=== PATIENT | male | born 1950 | race Caucasian/White ===

== ENCOUNTER 2017-07-20 18:28 | Inpatient (IN) | payer OTHER ==
[2017-07-20] VITALS (9 sets, daily range): BP systolic 149–221; BP diastolic 83–145; PULSE 88–137; RESP 16–22; TEMP 98.4–98.6; O2SAT 96–100
[~2017-07-20] VITALS: Ht 177.8 cm; Wt 86.0 kg
[2017-07-20] MEDS ORDERED: NITROGLYCERIN 0.4 MG SL 25 TABS/BTL SL ONE (18:33)
[2017-07-20] MEDS ORDERED: MORPHINE SULFATE 8 MG/ML INJ ONE (18:37)
[2017-07-20] MEDS ORDERED: ASPIRIN 325 MG TAB ONE (18:37)
[2017-07-20] MEDS ORDERED: MORPHINE SULFATE 4 MG/ML INJ IV PUSH ONE (18:45)
[2017-07-20] MEDS ORDERED: SODIUM CHLOR 0.9% 1000 ML INJ 1,000 ML IV ONE (18:45)
[2017-07-20] MEDS ORDERED: SODIUM CHLORIDE 0.9% FLUSH 10 ML FLUSH IVF PRN (18:45)
[2017-07-20] MEDS ORDERED: NITROGLYCERIN-D5W 50 MG/250 ML 250 ML IV PRN ×2 (18:45→21:30)
[2017-07-20] MEDS ORDERED: ASPIRIN 325 MG TAB PO ONE (18:45)
--- NOTE | 2017-07-20 18:54 | PD ---
HPI Chief Complaint: Chest Pain Time Seen by Provider: 18:31 Travel History International Travel<30 days: No Contact w/Intl Traveler<30days: No Traveled to known affect area: No History of Present Illness HPI 66yo M with PMH of HTN presents to the ED with c/o midsternal chest pain since waking up this morning. States it was very severe before and has gotten better to about a 4 out of 10. Associated with sob. Denies any fever, n/v, abdominal pain, focal weakness or weakness. Pt said he had black stool 2 days ago but is refusing rectal. PFSH Social History Alcohol Use: No Tobacco Use: Yes Substance Use: No Allergies-Medications (Allergen,Severity, Reaction): Coded Allergies: codeine (Verified Allergy, Severe, 07/20/17) Review of Systems Except as stated in HPI: all other systems reviewed are Neg Physical Exam Narrative GENERAL: 66yo M in moderate distress. SKIN: Focused skin assessment warm/dry. HEAD: Atraumatic. Normocephalic. EYES: Pupils equal and round. No scleral icterus. No injection or drainage. ENT: No nasal bleeding or discharge. Mucous membranes pink and moist. NECK: Trachea midline. No JVD. CARDIOVASCULAR: Regular rate and rhythm. No murmur appreciated. RESPIRATORY: No accessory muscle use. Clear to auscultation. Breath sounds equal bilaterally. GASTROINTESTINAL: Abdomen soft, non-tender, nondistended. RECAL: Refusing rectal. MUSCULOSKELETAL: No obvious deformities. No clubbing. No cyanosis. No edema. NEUROLOGICAL: Awake and alert. No obvious cranial nerve deficits. Motor grossly within normal limits. Normal speech. PSYCHIATRIC: Appropriate mood and affect; insight and judgment normal. Data Data Last Documented VS Vital Signs Date Time Temp Pulse Resp B/P (MAP) Pulse Ox O2 Delivery O2 Flow Rate FiO2 07/20/17 19:25 100 3.00 07/20/17 19:25 Nasal Cannula 07/20/17 18:55 118 209/139 (162) 221/145 (170) 07/20/17 18:52 16 07/20/17 18:29 98.6 Orders Orders Nitroglycerin Sl (Nitrostat Sl) (07/20/17 18:33) Aspirin (Aspirin) (07/20/17 18:37) Morphine Inj (Morphine Inj) (07/20/17 18:37) Nitroglycerin-D5w 50 Mg/250 Ml (Nitrogly (07/20/17 18:45) Basic Metabolic Panel (Bmp) (07/20/17 18:40) Ckmb (Isoenzyme) Profile (07/20/17 18:40) Complete Blood Count With Diff (07/20/17 18:40) Magnesium (Mg) (07/20/17 18:40) Prothrombin Time / Inr (Pt) (07/20/17 18:40) Act Partial Throm Time (Ptt) (07/20/17 18:40) Troponin I (07/20/17 18:40) Chest, Single Ap (07/20/17 18:40) Ecg Monitoring (07/20/17 18:40) Bilateral Bp Monitoring (07/20/17 18:40) Iv Access Insert/Monitor (07/20/17 18:40) Oximetry (07/20/17 18:40) Oxygen Administration (07/20/17 18:40) Aspirin (Aspirin) (07/20/17 18:45) Morphine Inj (Morphine Inj) (07/20/17 18:45) Sodium Chloride 0.9% Flush (Ns Flush) (07/20/17 18:45) Sodium Chlor 0.9% 1000 Ml Inj (Ns 1000 M (07/20/17 18:45) Blood Culture (07/20/17 18:43) Lactic Acid Sepsis Protocol (07/20/17 18:43) Admit Order (Ed Use Only) (07/20/17 19:28) CKMB (07/20/17 18:50) CKMB% (07/20/17 18:50) Labs Laboratory Tests Test 07/20/17 18:50 White Blood Count 12.6 TH/MM3 Red Blood Count 5.47 MIL/MM3 Hemoglobin 15.6 GM/DL Hematocrit 46.6 % Mean Corpuscular Volume 85.3 FL Mean Corpuscular Hemoglobin 28.6 PG Mean Corpuscular Hemoglobin Concent 33.5 % Red Cell Distribution Width 14.1 % Platelet Count 289 TH/MM3 Mean Platelet Volume 8.4 FL Neutrophils (%) (Auto) 74.7 % Lymphocytes (%) (Auto) 20.4 % Monocytes (%) (Auto) 4.2 % Eosinophils (%) (Auto) 0.3 % Basophils (%) (Auto) 0.4 % Neutrophils # (Auto) 9.4 TH/MM3 Lymphocytes # (Auto) 2.6 TH/MM3 Monocytes # (Auto) 0.5 TH/MM3 Eosinophils # (Auto) 0.0 TH/MM3 Basophils # (Auto) 0.0 TH/MM3 CBC Comment DIFF FINAL Differential Comment Prothrombin Time 10.8 SEC Prothromb Time International Ratio 1.0 RATIO Activated Partial Thromboplast Time 27.5 SEC Blood Urea Nitrogen 15 MG/DL Creatinine 1.33 MG/DL Random Glucose 103 MG/DL Calcium Level 9.3 MG/DL Magnesium Level 2.2 MG/DL Sodium Level 136 MEQ/L Potassium Level 4.2 MEQ/L Chloride Level 103 MEQ/L Carbon Dioxide Level 26.8 MEQ/L Anion Gap 6 MEQ/L Estimat Glomerular Filtration Rate 54 ML/MIN Lactic Acid Level 1.4 mmol/L Total Creatine Kinase 451 U/L Creatine Kinase MB 36.2 NG/ML Creatine Kinase MB % 8.0 % Troponin I 3.83 NG/ML MDM Medical Decision Making Medical Screen Exam Complete: Yes Emergency Medical Condition: Yes Interpretation(s) EKG: Sinus tachycardia at 125bpm. ST segment elevation in V2, V3. ST depression II, III, aVF. Differential Diagnosis STEMI vs. GI bleed vs. sepsis Narrative Course 66yo M with STEMI. I called Dr. Mohan who is project control officer for STEMI and he recommended lowering his blood pressure to less than 140 systolic with nitroglycerin drip and to call him back. Pt given morphine 2mg, aspirin and is on nitroglycerin drip. BP is down to 172/96 and pt states he is now pain free. Discussed pt's labs with Dr. Mohan and hemoglobin is normal at 15.6. At this time, he asked me to call the STEMI which was called. Mild leukocytosis at 12.6. Lactic acid 1.4. Creatinine mildly elevated at 1.33. Troponin elevated at 3.83. CXR showed blunting of left costophrenic angle which could indicate scarring versus small effusion. HR is also decreased to 106bpm. Pt said he had black stool 2 days ago but refused rectal exam. Pt initially refused cardiac cath and refused the nurse to shave his groin but after discussion, agreed to cardiac cath. Pt admitted to Dr. Mohan's service. Critical Care Narrative Aggregate critical care time was 35 minutes. Time to perform other separately billable procedures was not included in the critical care time. My time did not include minutes spent treating any other patients simultaneously or on activities that did not directly contribute to the patient's treatment. The services I provided to this patient were to treat and/or prevent clinically significant deterioration that could result in: cardiovascular collapse or . I provided critical care services requiring my management, as noted below: Chart data review, documentation time, medication orders and management, vital sign assessments/reviewing monitor data, ordering and reviewing lab tests, ordering and interpreting/reviewing x-rays and diagnostic studies, care of the patient and discussion of the patient with the admitting physicians. Diagnosis Primary Impression: STEMI (ST elevation myocardial infarction) Qualified Codes: I21.3 - ST elevation (STEMI) myocardial infarction of unspecified site Admitting Information Admitting Physician Requests: Dea Johnson DO Jul 20, 2017 18:54
[2017-07-20 19:11] LABS: AUTOMATED NEUTROPHIL # 9.4 TH/MM3 (1.8-7.7); BASOPHIL % 0.4 % (0.0-2.0); EOSINOPHIL % 0.3 % (0.0-4.0); HEMATOCRIT 46.6 % (39.0-51.0); HEMO FLAGS DIFF FINAL; LYMPH % 20.4 % (9.0-44.0); LYMPHOCYTE # 2.6 TH/MM3 (1.0-4.8); MEAN CELL VOLUME 85.3 FL (80.0-100.0); MEAN CORPUSCULAR HEMOGLOBIN 28.6 PG (27.0-34.0); MEAN CORPUSCULAR HGB CONC 33.5 % (32.0-36.0); MONO % 4.2 % (0.0-8.0); NEUT % 74.7 % (16.0-70.0); PLATELET COUNT 289 TH/MM3 (150-450); RED BLOOD COUNT 5.47 MIL/MM3 (4.50-5.90); RED CELL DISTRIBUTION WIDTH 14.1 % (11.6-17.2); WHITE BLOOD COUNT 12.6 TH/MM3 (4.0-11.0)
--- NOTE | 2017-07-20 19:12 | RADRPT ---
EXAM DATE/TIME: 07/20/2017 18:57 [facility] COMPARISON: No previous studies available for comparison. INDICATIONS : Chest pain and shortness of breath. MEDICAL HISTORY : None. SURGICAL HISTORY : None. ENCOUNTER: Initial ACUITY: 1 day PAIN SCORE: 10/10 LOCATION: Bilateral chest FINDINGS: 2 AP erect views of the chest were obtained and demonstrate mild hyperinflation. There is blunting of the left lateral costophrenic angle. There is mild streaky opacity at lung bases consistent with ate lectasis or scarring. The heart size is within normal limits and there is no perihilar edema. The bon y thorax is intact. There are overlying electrocardiogram leads.. Osseous structures are intact. CONCLUSION: 1. Blunting of the left costophrenic angle which could indicate scarring versus small effusion. 2. Mild scarring or atelectasis at the lung bases. 3. Mild hyperinflation. Kerwin Roldan MD on July 20, 2017 at 19:09 Board Certified Radiologist. This report was verified electronically.
--- NOTE | 2017-07-20 19:16 | PD ---
Physical Exam Narrative General: The patient is a well-developed well-nourished male in no acute distress, on my arrival to the room the patient reports that his chest pain has improved the patient was initially evaluated by Dr. Gaviria. The patient has been placed on a nitroglycerin drip. Head and Neck exam: Head is normocephalic atraumatic. Eyes: EOMI, pupils are equal round and reactive to light. Nose: Midline septum with pink mucous membranes Mouth: Dentition unremarkable. Moist mucus membranes. Posterior oropharynx is not erythematous. No tonsillar hypertrophy. Uvula midline. Airway patent. Neck: No palpable lymphadenopathy. No nuchal rigidity. No thyromegaly. Cardiovascular: Sinus tachycardia in the 1T without murmurs, gallops, or rubs. No pulse deficit to the extremities on simultaneous auscultation and palpation of his radial artery Lungs: Clear to auscultation bilaterally. No wheezes, rhonchi, or rales. Abdomen: Soft, without tenderness to palpation in all 4 quadrants of the abdomen. No guarding, rebound, or rigidity. Normal bowel sounds are audible. Extremities: No clubbing, cyanosis, or edema. 2+ pulses in all 4 extremities. No calf tenderness on palpation. Neurologic Exam: Alert and oriented 4. Grossly nonfocal. Skin Exam: No rash noted. Intact skin that is warm and dry. Data Data Last Documented VS Vital Signs Date Time Temp Pulse Resp B/P (MAP) Pulse Ox O2 Delivery O2 Flow Rate FiO2 07/20/17 18:55 118 209/139 (162) 221/145 (170) 07/20/17 18:52 16 97 2.00 07/20/17 18:37 Nasal Cannula 07/20/17 18:29 98.6 Orders Orders Nitroglycerin Sl (Nitrostat Sl) (07/20/17 18:33) Aspirin (Aspirin) (07/20/17 18:37) Morphine Inj (Morphine Inj) (07/20/17 18:37) Nitroglycerin-D5w 50 Mg/250 Ml (Nitrogly (07/20/17 18:45) Basic Metabolic Panel (Bmp) (07/20/17 18:40) Ckmb (Isoenzyme) Profile (07/20/17 18:40) Complete Blood Count With Diff (07/20/17 18:40) Magnesium (Mg) (07/20/17 18:40) Prothrombin Time / Inr (Pt) (07/20/17 18:40) Act Partial Throm Time (Ptt) (07/20/17 18:40) Troponin I (07/20/17 18:40) Chest, Single Ap (07/20/17 18:40) Ecg Monitoring (07/20/17 18:40) Bilateral Bp Monitoring (07/20/17 18:40) Iv Access Insert/Monitor (07/20/17 18:40) Oximetry (07/20/17 18:40) Oxygen Administration (07/20/17 18:40) Aspirin (Aspirin) (07/20/17 18:45) Morphine Inj (Morphine Inj) (07/20/17 18:45) Sodium Chloride 0.9% Flush (Ns Flush) (07/20/17 18:45) Sodium Chlor 0.9% 1000 Ml Inj (Ns 1000 M (07/20/17 18:45) Blood Culture (07/20/17 18:43) Lactic Acid Sepsis Protocol (07/20/17 18:43) Admit Order (Ed Use Only) (07/20/17 19:28) CKMB (07/20/17 18:50) CKMB% (07/20/17 18:50) Labs Laboratory Tests Test 07/20/17 18:50 White Blood Count 12.6 TH/MM3 Red Blood Count 5.47 MIL/MM3 Hemoglobin 15.6 GM/DL Hematocrit 46.6 % Mean Corpuscular Volume 85.3 FL Mean Corpuscular Hemoglobin 28.6 PG Mean Corpuscular Hemoglobin Concent 33.5 % Red Cell Distribution Width 14.1 % Platelet Count 289 TH/MM3 Mean Platelet Volume 8.4 FL Neutrophils (%) (Auto) 74.7 % Lymphocytes (%) (Auto) 20.4 % Monocytes (%) (Auto) 4.2 % Eosinophils (%) (Auto) 0.3 % Basophils (%) (Auto) 0.4 % Neutrophils # (Auto) 9.4 TH/MM3 Lymphocytes # (Auto) 2.6 TH/MM3 Monocytes # (Auto) 0.5 TH/MM3 Eosinophils # (Auto) 0.0 TH/MM3 Basophils # (Auto) 0.0 TH/MM3 CBC Comment DIFF FINAL Differential Comment Prothrombin Time 10.8 SEC Prothromb Time International Ratio 1.0 RATIO Activated Partial Thromboplast Time 27.5 SEC Blood Urea Nitrogen 15 MG/DL Creatinine 1.33 MG/DL Random Glucose 103 MG/DL Calcium Level 9.3 MG/DL Magnesium Level 2.2 MG/DL Sodium Level 136 MEQ/L Potassium Level 4.2 MEQ/L Chloride Level 103 MEQ/L Carbon Dioxide Level 26.8 MEQ/L Anion Gap 6 MEQ/L Estimat Glomerular Filtration Rate 54 ML/MIN Lactic Acid Level 1.4 mmol/L Total Creatine Kinase 451 U/L Troponin I 3.83 NG/ML [facility] Medical Record Reviewed: Yes Supervised Visit with DAVID: Yes Interpretation(s) Last Impressions Chest X-Ray 07/20/17 1840 Signed Impressions: Service Date/Time: Thursday, July 20, 2017 18:57 - CONCLUSION: 1. Blunting of the left costophrenic angle which could indicate scarring versus small effusion. 2. Mild scarring or atelectasis at the lung bases. 3. Mild hyperinflation. Kerwin Roldan MD Narrative Course During the course of the patients emergency department visit, the patients history, examination, and differential diagnosis were reviewed with the patient. The patient had IV access obtained and blood work sent for analysis. The patient is a 66-year-old male who presents to [facility] emergency Department with a history of intermittent chest pain that he reports began 2-3 days ago. He reports that it became constant this afternoon when he woke up at 1:30 PM. The patient reports that the pain was a 10 out of 10 in severity. He reports it was associated with intermittent shortness of breath, diaphoresis, and nausea last night. The patient reports that he first started having chest pain a few months ago, however that episode spontaneously resolved and he was not evaluated at the time the chest pain was occurring. He did discuss this [facility], however no further interventions were done. The patient reports that over the last 2-3 days he has also been experiencing black stools. He reports that he last moved his bowels yesterday and they were black. He denies any prior history of peptic ulcer disease or GI bleed, however he reports that he has never had a colonoscopy. The patient refuses to have a rectal examination done. The patient was initially provided a nitroglycerin drip, aspirin by mouth. The patients laboratory studies were reviewed and remarkable for a white count of 12, hemoglobin 15, platelets 289 basic metabolic profile is remarkable for a creatinine 1.33, troponin I is 3.8, lactic acid is 1.4. Radiology studies were reviewed and remarkable for blunting of the costophrenic angle which appears to be related atelectasis versus scarring, no other acute abnormality. The patient's case was initially checked out to me by Dr. Gaviria, however she then again spoke to Dr. Mohan regarding the patient's normal hemoglobin and EKG abnormalities and a STEMI alert was called. Dr. Gaviria admitted the patient and the patient is going to be transferred up to the cardiac catheterization lab for further discussion with Dr. Mohan. Sepsis Criteria SIRS Criteria (2 or more): Heart rate over 90 Diagnosis Primary Impression: STEMI (ST elevation myocardial infarction) Qualified Codes: I21.3 - ST elevation (STEMI) myocardial infarction of unspecified site Admitting Information Admitting Physician Requests: Admit Renetta Xiao MD Jul 20, 2017 19:15
[2017-07-20 19:24] LABS: APTT (PATIENT) 27.5 SEC (24.3-30.1); PROTHROMBIN TIME - PATIENT 10.8 SEC (9.8-11.6)
[2017-07-20 19:30] LABS: BICARBONATE 26.8 MEQ/L (21.0-32.0); MAGNESIUM 2.2 MG/DL (1.5-2.5)
[2017-07-20 19:35] LABS: POTASSIUM 4.2 MEQ/L (3.5-5.1)
[2017-07-20 19:55] LABS: CKMB 36.2 NG/ML (0.5-3.6)
[2017-07-20] MEDS ORDERED: HEPARIN-NS/PF INJ 1,000 ML ONE (19:57)
[2017-07-20] MEDS ORDERED: IOHEXOL 350 MG/ML 100 ML BTL (for Cath Lab) OTHER ONE (20:15)
[2017-07-20] MEDS ORDERED: MIDAZOLAM HCL 2 MG/2 ML VIAL ONE ×3 (20:17→21:05)
[2017-07-20] MEDS ORDERED: HEPARIN SODIUM - IV 10,000 UNITS/10 ML VIAL ONE (20:57)
[2017-07-20] MEDS ORDERED: CLOPIDOGREL 300 MG TAB ONE (21:14)
[2017-07-20] MEDS ORDERED: TIROFIBAN BOLUS INJ 100 ML IV ONE (21:15)
[2017-07-20] MEDS: TIROFIBAN INFUSION INJ 250 ML IV SCH (21:16)
[2017-07-20] MEDS ORDERED: BACITRACIN OINT 0.9 GM PKT TOP ONE (21:30)
[2017-07-20] MEDS ORDERED: MISC INFORMATION XX ONE (21:30)
[2017-07-20] MEDS ORDERED: CLOPIDOGREL 300 MG TAB PO ONE (21:30)
[2017-07-20] MEDS ORDERED: SODIUM CHLORIDE 0.9% FLUSH 10 ML FLUSH PRN (21:30)
--- NOTE | 2017-07-20 21:33 | CATHPROC ---
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 Study Information Study Number Admission Scheduled Start Study Start [id number] Jul 20 2017 7:30PM 07/20/2017 Jul 20 2017 8:03PM [place] [facility] Cardiac Catheterization Admit Source Facility Department Emergency department [facility] - Bone Glue Maker Physician and Clinical Staff Initial Hardeep Morrell [employer] Drilling Machine Operator Jacqueline Urban,COBY Rotary [employer] Drilling Machine Operator Tiffanie Hughes RN Recorder Tony Curiel,RT(R) Scrub Kingsley Ricks RCIS(BS) Procedures Performed Procedure Location (Site) Vessel Name Coronary Angiograms LCA Left Coronary Coronary Angiograms RCA Right Coronary L Heart Cath LV Gram-hand inj. LV LV Ventricle Stent LAD Prox Left Coronary Wire insertion Fem Art (right) Femoral Art Equipment Time Casino Floor Person Description Size Mfg Part Number Used/Scraped [id number] 20:58 [employer] WIRE, ASAHI PROWATER 180CM 180CM Used *[id number] 20:58 [employer] WIRE, ASAHI PROWATER 180CM 180CM Used *[id number] TRANSDUCER, TRUWAVE [id number] 20:10 RUFF SMITH * Used W/STOCKCOCK *[id number] 21:04 [employer] WIRE, CHOICE PT 182CM 182CM Used *[id number] [id number] *[id number] [id number] *[id number] *[id number] 20:10 [employer] INDUSTRIES PACK, CCL CUSTOM * Used *[id number] 20:10 [employer] PACER PEN, SKIN DUAL W/ RULER * Used *[id number] 21:08 [employer] STENT, 3.0 12 INTEGRITY 3.0 12 Used *[id number] 21:07 [employer] STENT, 3.0 9 INTEGRITY 3.0 9 Used *[id number] 20:58 [employer] MEDICAL 30 GABRIELA INDEFLATOR Used *[id number] 21:00 [employer] MEDICAL SHEATH, FR6.5 PRELUDE 11CM FR 6.5 038ACT Used *[id number] 20:10 [employer] MEDICAL WIRE, 3MMJ .035 180CM 180CM Used *[id number] 20:10 NAMIC MANIFOLD, 4 PORT * Used *[id number] 20:10 NYCOMED OMNIPAQUE, 350 MG, 150ML 150ML [id number] Used [id number] 20:10 [employer] BLANKET,WARM AIR CCL * Used *[id number] 20:10 TERUMO MEDICAL SHEATH, FR4 TERUMO (10CM) FR 4 Used *[id number] Equipment Model, Serial, Lot Number and Expiration Data Description Model Number Serial Number Lot Number Expiration Date STENT, 3.0 12 INTEGRITY [id number] 12-31-2018 WIRE, CHOICE PT 182CM [id number] 01-26-2019 History: Current Medications Medication Dosage/Unit Route Frequency Last Date/Time Taken ASA History: Allergies Allergy Reaction codeine History: Risk Factors Family History of Hypertension Dyslipidemia Previous SD Previous Heart Failure Premature CAD Yes No No No No Prior Valve Prior PCI Prior CABG Surgery No No No Cerebrovascular Peripheral Artery Chronic Lung On Dialysis Diabetes Disease Disease Disease No No No No No History: Risk Factors Selection Items Current Smoker History: Symptoms/Diagnosis Selection Items Chest pain SOB History: Stress Tests Stress or Imaging Studies Performed No History: Other Disease Selection Items HTN History: Other Current Smoker Method Packs a Day Years Used Pack Years Yes Cigarettes 2 50 100 Labs Hgb (g/dl) Hct (%) RBC (MIL/MM3) WBC (l/cumm) Platelets (thousands) 11.60-17.00 35.00-51.00 4.00-5.90 4.00-11.00 150.00-450.00 15.0 46.6 5.4 12.6 289 Glucose (mg/dl) BUN (mg/dl) Creatinine (mg/dl) BUN:Creatinine (1:x) 74.00-106.00 7.00-18.00 0.50-1.30 10.00-20.00 103 15 1.3 11.5 Na (meq/l) K (meq/l) Cl (meq/l) CO2 (mmol/L) Ca (mg/dl) 136.00-145.00 3.50-5.10 98.00-107.00 21.00-32.00 8.50-10.10 136 4.2 103 26.8 9.3 PT (sec) PTT (sec) INR (PTT:PT) 9.80-11.60 24.30-30.10 0.90-1.10 10.8 27.5 1 Troponin I (ng/ml) CPK-MB (ng/ML) 0.02-0.05 0.50-3.60 3.83 36.2 Medication Medication Total Dose (Bolus/Oral) Medication Total Dosage/Unit 1% XYLOCAINE 20 mL AGGRASTAT BOLUS 15.5 meq/kg HEPARIN 6000 units PLAVIX 600 mg VERSED 6 mg Medications (Bolus/Oral) Medication Time Given Dosage/Unit Administered By Reason VERSED 07/20/2017 8:29:11 PM 2 mg Mrache, Tiffanie 2 mg VERSED given in lab by Tiffanie Hughes RN in Left Hand via Peripheral IV. VERSED 07/20/2017 8:44:22 PM 1 mg Mrache, Tiffanie 1 mg VERSED given in lab by Tiffanie Hughes RN in Left Hand via Peripheral IV. 1% XYLOCAINE 07/20/2017 8:45:35 PM 20 mL Marques, Hardeep 20 mL 1% XYLOCAINE given in lab by Hardeep Mohan in Right Groin via Subcutaneous. VERSED 07/20/2017 8:45:48 PM 1 mg Mrache, Tiffanie 1 mg VERSED given in lab by Tiffanie Hughes RN in Left Hand via Peripheral IV. VERSED 07/20/2017 8:47:28 PM 1 mg Mrache, Tiffanie 1 mg VERSED given in lab by Tiffanie Hughes RN in Left Hand via Peripheral IV. HEPARIN 07/20/2017 8:59:02 PM 6000 units Edi Hughest 6000 units HEPARIN given in lab by Tiffanie Hughes RN in Left Hand via Peripheral IV. VERSED 07/20/2017 9:06:55 PM 1 mg Mrache, Tiffanie 1 mg VERSED given in lab by Tiffanie Hughes RN in Left Hand via Peripheral IV. AGGRASTAT BOLUS 07/20/2017 9:17:26 PM 15.5 meq/kg Mralashell, Tiffanie 15.5 meq/kg AGGRASTAT BOLUS given in lab by Tiffanie Hughes RN via Peripheral IV. Amount given = 13 33 meq. PLAVIX 07/20/2017 9:17:51 PM 600 mg Mrache, Tiffanie 600 mg PLAVIX given in lab by Tiffanie Hughes RN via Oral. Medication (Drip) Medication Time Given Dosage/Unit Concentration/Unit Diluent (ml) Solution AGGRASTAT DRIP 07/20/2017 9:20:26 PM 0.15 mcg/kg/min 12.5 mg 250 NaCl .9 0.15 mcg/kg/min AGGRASTAT DRIP given in lab by Tiffanie Hughes RN via Peripheral IV. Pump/Drip Flow = 15.48 ml/hr using NaCl .9 with a concentration of 12.5 mg in 250 ml. IV Solutions 07/20/2017 8:19:44 PM 50 mL (Bolus) 500 NaCl .9 Patient arrived on 50 mL (Bolus) IV Solutions in Left Hand via Peripheral IV. Using NaCl .9. NITROGLYCERIN DRIP 07/20/2017 8:19:29 PM 16.667 mcg/min 50 mg 250 D5W Patient arrived on 16.667 mcg/min NITROGLYCERIN DRIP in Left Hand via Peripheral IV. Pump/Drip Flow = 5 ml/hr using D5W with a concentration of 50 mg in 250 ml. Initial Case Assessment Cardiovascular Rhythm Chest Pain Irregular 4 Edema Present Skin color Skin None Normal Warm Dry Circulatory - Right Pulses Dorsalis Pedis Femoral 2 2 Scale (0,1,2,3,4,d) Circulatory - Left Pulses Dorsalis Pedis Femoral 0 1 Scale (0,1,2,3,4,d) Neurological State Oriented to time-place- Alert Moves all extremities person Respiration - General SpO2 (%) O2 (lpm) 100 3 Final Case Assessment Cardiovascular HR Rhythm NIBP Chest Pain 98 Sinus 170/58 0 Edema Present Skin color Skin None Normal Warm Dry Circulatory - Right Pulses Dorsalis Pedis Femoral 2 2 Scale (0,1,2,3,4,d) Circulatory - Left Pulses Dorsalis Pedis Femoral 0 1 Scale (0,1,2,3,4,d) Neurological State Oriented to time-place- Alert Moves all extremities person Respiration - General Respiration Rate SpO2 (%) O2 (lpm) (B/min) 28 99 3 Chronological Log Time Study Chronological Log 20:06:57 Emergency Room notified that Bone Glue Maker is ready. 20:15:25 Patient arrived via Bed. 20:18:30 Patient Name, D.O.B, / Armband Verified By R.N. 20:18:31 Consent signed by the physician and the patient and verified by the Bone Glue [facility] staff. 20:18:31 Pre-op and post- op instructions given; patient acknowledges understanding of instructions. 20:18:32 Verbal Stimulation=2 Physical Stimulation=2 Airway=2 Respiration=2 TOTAL=8. (0=absent, 1=li mited, 2=present) 20:18:33 Presedation assessment performed by Bone Glue Maker RN. 20:18:36 Patient has been NPO for Less than 6Hrs. 20:18:37 Skin Breakdown- 20:18:45 Patient Warmer Placed on the Table. 20:18:46 Naomi Prominences Protected 20:18:51 A # 20 IV was noted in the Hand (left). Grade = 0 Patient arrived on 16.667 mcg/min NITROGLYCERIN DRIP in Left Hand via Peripheral IV. Pump/Drip Flow = 5 ml/hr 20:19:29 using D5W with a concentration of 50 mg in 250 ml. 20:19:44 Patient arrived on 50 mL (Bolus) IV Solutions in Left Hand via Peripheral IV. Using NaCl .9 . 20:20:55 History and physical on the chart or being dictated. 20:21:20 A # 18 IV was noted in the Wrist (right). Grade = 0 Vitals capture started with the following parameters, Patient=Adult, Interval=5 min, Initial Pr dabwrb=187 mmHg, 20:23:17 Deflation Rate=5 mmHg, Cuff placed on Left Arm Assessment: Initial Case, Rhythm=Irregular, Chest Pain=4, Edema=None, Color=Normal, Skin = Warm , Dry Right Pulses: Gera Ped=2, Femoral=2 20:23:23 Left Pulses: Gera Ped=0, Femoral=1 Neurological: State=Alert, Ox3, SANCHES Respiration: IiW6=884 %, O2=3 lpm 20:23:49 DR=760 bpm, NYRF=898/131 mmhg, SpO2=99.0 %, Resp=20 B/min, Pain=4, Celso=10, Ruby=2 20:29:11 2 mg VERSED given in lab by Tiffanie Hughes, COBY in Left Hand via Peripheral IV. 20:29:36 RK=973 bpm, LYYR=705/122 mmhg, SpO2=99.0 %, Resp=18 B/min, Pain=4, Celso=10, Ruby=2 20:30:49 Bilateral groins prepped with 2% chlorhexidine, and with a 3 min. waiting time. 20:32:24 Reference ECG taken 20:34:02 OH=616 bpm, OSZJ=541/121 mmhg, XyL2=715.0 %, Resp=9 B/min, Pain=4, Celso=10, Ruby=2 20:34:39 paged 20:36:30 Pressure channel 1 zeroed. 20:39:01 HR=97 bpm, OIDU=110/114 mmhg, SpO2=99.0 %, Resp=22 B/min, Pain=4, Celso=10, Ruby=2 20:40:41 MD arrived. 20:44:22 1 mg VERSED given in lab by Tiffanie Hughes RN in Left Hand via Peripheral IV. 20:44:51 HR=97 bpm, OAOU=167/122 mmhg, SpO2=99.0 %, Resp=15 B/min, Pain=4, Celso=10, Ruby=2 Time Out. Correct patient, correct procedure,correct physician, power injector loaded with cont rast with surgical team 20:45:03 present. Time Out Concurred by , individual staff in procedure 20:45:31 Case Start 20:45:35 20 mL 1% XYLOCAINE given in lab by Hardeep Mohan in Right Groin via Subcutaneous. 20:45:48 1 mg VERSED given in lab by Tiffanie Hughes RN in Left Hand via Peripheral IV. 20:47:28 1 mg VERSED given in lab by Tiffanie Hughes RN in Left Hand via Peripheral IV. 20:49:32 BY=781 bpm, WRMX=068/113 mmhg, SpO2=99.0 %, Resp=13 B/min, Pain=4, Celso=10, Ruby=2 20:51:15 Access site was Right Femoral Artery. 20:51:21 A SHEATH, FR4 TERUMO (10CM) FR 4 was advanced into the Fem Art (right) using the Percutaneo us technique. A JR 4.0 INFINITI CATHETER FR 4 was advanced over a wire. OMNIPAQUE, 350 MG, 150ML 150ML was us ed for 20:52:51 injections. Recorded Pressure: LV, GH=814, Condition=Condition 1 20:54:03 (Left Ventricle) LV 172/15/28 20:54:12 The LV was manually injected with 6 cc's and visualized. OMNIPAQUE, 350 MG, 150ML 150ML use d. Recorded Pressure: LV, Ao, BH=094, Condition=Condition 1 20:54:23 (Left Ventricle) LV 177/24/39, (Aorta) Ao 161/104/129 20:54:41 DA=392 bpm, CIYQ=589/115 mmhg, SpO2=99.0 %, Resp=30 B/min, Pain=4, Celso=10, Ruby=2 20:54:59 The RCA was injected and visualized at various angles. OMNIPAQUE, 350 MG, 150ML 150ML used . After removing the current catheter a JL 4.0 INFINITI CATHETER FR 4 was advanced over a WIRE, 3 MMJ .035 180CM 20:55:51 180CM. 20:57:16 The LCA was injected and visualized at various angles. OMNIPAQUE, 350 MG, 150ML 150ML used . Recorded Pressure: Ao, HR=98, Condition=Condition 1 20:57:35 (Aorta) Ao 176/114/141 20:58:37 Catheter was removed A SHEATH, FR6.5 PRELUDE 11CM FR 6.5 was exchanged in the Fem Art (right). This was necessary in order to 20:58:39 accomodate a larger catheter. 20:59:01 HR=99 bpm, SHSA=149/121 mmhg, SpO2=99.0 %, Resp=13 B/min, Pain=4, Celso=10, Ruby=2 20:59:02 6000 units HEPARIN given in lab by Tiffanie Hughes RN in Left Hand via Peripheral IV. A XB 3.5 GUIDE CATHETER FR 6 was advanced over a wire. OMNIPAQUE, 350 MG, 150ML 150ML was used for 21:00:40 injections. 21:00:49 ACT (Normal Range 90-180) = 238 21:02:09 A WIRE, ASAFALLON PROWATER 180CM 180CM was inserted via Fem Art (right). 21:04:02 TC=521 bpm, YSQJ=777/115 mmhg, SpO2=99.0 %, Resp=17 B/min, Pain=4, Celso=10, Ruby=2 21:05:26 A WIRE, CHOICE PT 182CM 182CM was inserted via Fem Art (right). 21:06:55 1 mg VERSED given in lab by Tiffanie Hughes, COBY in Left Hand via Peripheral IV. 21:07:27 Wire removed 21:07:57 Activated Clotting Time Drawn 21:09:05 EV=514 bpm, QGDT=646/118 mmhg, SpO2=99.0 %, Resp=24 B/min, Pain=4, Celso=10, Ruby=2 An STENT, 3.0 12 INTEGRITY 3.0 12 Bare Metal Stent was inserted through a XB 3.5 GUIDE CATHETER FR 6 over a 21:09:50 WIRE, [employer] 180CM 180CM. A STENT, 3.0 12 INTEGRITY 3.0 12 was deployed using a 30 GABRIELA INDEFLATOR at 12 atmospheres for 1 2 seconds in :10:41 the LAD Prox. 21:11:26 Delivery device removed 21:11:35 The LCA was injected and visualized at various angles. OMNIPAQUE, 350 MG, 150ML 150ML used . 21:12:37 Wire removed ::41 Catheter was removed 21:13:00 Case End 21:13:37 In the Fem Art (right) the SHEATH, FR6.5 PRELUDE 11CM FR 6.[address] by Kingsley Ricks RCIS(BS). 21:13:46 No case complications noted. 21:13:58 Cine recording checked. 21:14:04 GO=804 bpm, JZBC=847/107 mmhg, SpO2=99.0 %, Resp=15 B/min, Pain=4, Celso=10, Ruby=2 21:17:26 15.5 meq/kg AGGRASTAT BOLUS given in lab by Tiffanie Hughes, COBY via Peripheral IV. Amount given = 1333 meq. 21:17:51 600 mg PLAVIX given in lab by Tiffanie Hughes, COBY via Oral. 21:19:09 SZ=518 bpm, ULDN=182/58 mmhg, SpO2=99.0 %, Resp=15 B/min, Pain=4, Celso=10, Ruby=2 0.15 mcg/kg/min AGGRASTAT DRIP given in lab by Tiffanie Hughes, COBY via Peripheral IV. Pump/Dri p Flow = 15.48 21:20:26 ml/hr using NaCl .9 with a concentration of 12.5 mg in 250 ml. Assessment: Final Case, HR=98 BPM, Rhythm=Sinus, CSWS=316/58 mmhg, Chest Pain=0, Edema=None, Color=Normal, Skin = Warm, Dry Right Pulses: Gera Ped=2, Femoral=2 21:21:05 Left Pulses: Gera Ped=0, Femoral=1 Neurological: State=Alert, Ox3, SANCHES Respiration: Resp=28 B/min, SpO2=99 %, O2=3 lpm 21:22:14 Sterile dressing applied to site 21:22:30 Bedside Report will be given. 21:22:33 Implantable Device card placed in patient's chart. 21:22:37 A Left Heart Cath was performed. 21:24:02 HR=95 bpm, LAYT=833/83 mmhg, SpO2=98.0 %, Resp=11 B/min, Pain=4, Celso=10, Ruby=2 21:25:26 Vitals capture stopped. 21:26:16 Activated Clotting Time Drawn End Study - Contrast Media Used In Study Contrast Total Opened (mL) Total Used (mL) Total Wasted (mL) Omnipaque 150 75 75 End Study - Maximum Contrast Load Max Contrast Load (mL) 330.8 End Study - Radiation Exposure Fluoro Time (minutes) 5.7 End Study - Patient Disposition Complications Transferred To Interventional Outcome No Telemetry Bed successful
--- NOTE | 2017-07-20 22:01 | MB ---
cc: LOBITO SANDOVAL M.D. DATE OF CONSULTATION 07/20/17 HISTORY OF PRESENT ILLNESS Fei is a very pleasant 66-year-old gentleman with history of hypertension presents to the emergency room with chief complaint of substernal chest pain starting this morning and actually woke him up. It is associated with shortness of breath. Otherwise, denies any fevers, chills, cough, bleeding. He does note heme-positive stools that is being followed at [place]. PAST MEDICAL HISTORY As per his history of present illness. SOCIAL HISTORY He does smoke. Denies alcohol use. ALLERGIES CODEINE. MEDICATIONS Given in the ER include aspirin. PHYSICAL EXAMINATION VITAL SIGNS: Blood pressure 149/83, pulse ranging between 101 and 119, respiratory 22, sats 97% on 2 liters nasal cannula. GENERAL: He is alert and oriented times three, in no acute distress. NECK: Supple. No JVD, no bruit CARDIOVASCULAR: S1-S2. No murmurs, rubs or gallops. LUNGS: Clear to auscultation bilaterally. ABDOMEN: Soft, nontender, nondistended with positive bowel sounds. EXTREMITIES: No lower extremity edema. LABORATORY DATA White count 12.6, hemoglobin 15.6, bicarb 46.6, platelet count 289, sodium 136, potassium 4.2, chloride 103, BUN 15, creatinine 1.33, creatine 451, CK-MB is 8%. Troponin is 3.3. INR is 1.0. IMAGING STUDIES Chest x-ray blunting of the left costophrenic angle which could indicate scarring versus small effusion, mild scarring or atelectasis at the lung bases, mild hyperinflation. CARDIOLOGY STUDIES EKG shows ST elevation in lead V1, V2, V3 of 1 mm with biphasic T-wave in V2, V3, V4, V5, PVCs, left anterior fascicular block. DIAGNOSIS 1. STEMI. 2. Tobacco use. 3. Hypertension. 4. Dyspnea. 5. Chronic renal insufficiency. 6. Elevated white count. DISCUSSION The patient presents with a STEMI, chest pain, dyspnea, has multiple cardiac risk factors including tobacco use. Therefore, I do think STEMI alert should be called. I have discussed with Dr. Cavanaugh plans for emergent left heart catheterization. Lobito Sandoval MD AWYasir/EO /9:33 PM /9:43 PM
[2017-07-21] VITALS (15 sets, daily range): BP systolic 129–161; BP diastolic 71–92; PULSE 80–105; RESP 18–20; TEMP 98.2–98.9; O2SAT 98
[2017-07-21] MEDS: TIROFIBAN INFUSION INJ 250 ML IV SCH (00:39)
[2017-07-21] MEDS ORDERED: ATROPINE SULFATE 1 MG/10 ML SYRINGE ONE (01:55)
[2017-07-21] MEDS ORDERED: EPINEPHrine HCL (1:10,000) 1 MG/10 ML SYRINGE ONE (01:56)
[2017-07-21 04:25] LABS: AUTOMATED NEUTROPHIL # 7.2 TH/MM3 (1.8-7.7); BASOPHIL % 0.5 % (0.0-2.0); EOSINOPHIL # 0.1 TH/MM3 (0-0.4); EOSINOPHIL % 0.6 % (0.0-4.0); HEMATOCRIT 38.6 % (39.0-51.0); HEMO FLAGS DIFF FINAL; LYMPHOCYTE # 1.8 TH/MM3 (1.0-4.8); MEAN CELL VOLUME 85.1 FL (80.0-100.0); MEAN CORPUSCULAR HEMOGLOBIN 28.5 PG (27.0-34.0); MEAN CORPUSCULAR HGB CONC 33.5 % (32.0-36.0); MONO % 5.9 % (0.0-8.0); PLATELET COUNT 255 TH/MM3 (150-450); RED BLOOD COUNT 4.54 MIL/MM3 (4.50-5.90); RED CELL DISTRIBUTION WIDTH 14.3 % (11.6-17.2); WHITE BLOOD COUNT 9.7 TH/MM3 (4.0-11.0)
[2017-07-21 05:05] LABS: BICARBONATE 27.8 MEQ/L (21.0-32.0); HDL CHOLESTEROL 24.7 MG/DL (40.0-60.0); INDIRECT BILIRUBIN 0.3 MG/DL (0.0-0.8); POTASSIUM 3.6 MEQ/L (3.5-5.1); TOTAL BILIRUBIN ADULT 0.4 MG/DL (0.2-1.0)
[2017-07-21 05:27] LABS: CKMB 135.7 NG/ML (0.5-3.6)
[2017-07-21] MEDS ORDERED: CLOPIDOGREL 75 MG TAB PO SCH (09:00)
[2017-07-21] MEDS ORDERED: ASPIRIN 81 MG CHEW TAB PO SCH (09:00)
[2017-07-21] MEDS ORDERED: RAMIPRIL 2.5 MG CAP PO SCH (09:00)
[2017-07-21] MEDS ORDERED: SODIUM CHLORIDE 0.9% FLUSH 10 ML FLUSH SCH (09:00)
[2017-07-21] MEDS ORDERED: CARVEDILOL 3.125 MG TAB PO SCH (09:00)
[2017-07-21] MEDS ORDERED: LORazepam 2 MG/ML VIAL IV PUSH ONE (09:15)
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
--- NOTE | 2017-07-21 10:45 | MA ---
cc: LOBITO SANDOVAL M.D. DATE: 07/20/2017 PROCEDURE Left heart catheterization, left ventriculography, coronary angiography, PCI with bare metal stent of the proximal LAD. INDICATIONS STEMI, coronary artery disease, tobacco use, multiple cardiac risk factors. DETAILS OF PROCEDURE The patient was brought to the cardiac catheterization laboratory, prepped and draped in the usual sterile fashion. 10 cc of 1% lidocaine was used to locally anesthetize the right common femoral artery. A 4-Spanish sheath was placed in right common femoral artery. 4-Spanish JR4 and JL4 catheters were used to perform left and right coronary angiography, left ventriculography. FINDINGS LV pressure 170/20-21. EF 55%. The right coronary is dominant and has mild diffuse disease in the proximal segment up to 10-20% angiographically. The right posterolateral artery is a large vessel, probably 3.5 mm in diameter at its reference vessel diameter, has a long proximal 95% stenosis. The left main coronary artery has a distal 20% stenosis. The left circumflex vessel has mild diffuse disease in the proximal to midsegment up to 20% angiographically. The first obtuse marginal vessel is a medium to large size vessel with a proximal 60-70% stenosis. The second obtuse marginal vessel is a small vessel with mild diffuse disease up to 20% angiographically. A third obtuse marginal vessel is a very small vessel, 0.5 to 1 mm in diameter, with no significant obstructive disease. The LAD has a hazy long 95% proximal stenosis and is a transapical vessel. There is a medium-sized diagonal vessel which has an ostial 70% stenosis at the distal end of the lesion. The second diagonal artery is a medium-sized vessel which has an ostial 95% stenosis. A 6-Spanish sheath was exchanged for the 4-Spanish sheath. 70 units/kg of heparin was given. The ACT was 238. An additional 1500 units of heparin was given. Final ACT is pending at the time of dictation. A 6-Spanish XB 3.5 guide was placed. My intent was to place a wire in the first diagonal artery to protect it and to pre-dilate it; however, due to extreme vessel tortuosity even with a Choice PT with an extreme bend on the wire I could not access the diagonal vessel. There was enough room to stent up to the end of the lesion and therefore I opted to place a 3.0 x 12 Integrity stent at the lesion site, deployed one inflation to 10 atmospheres for 20 seconds. This did reproduce the patient's chest pain. The stenosis went from 95% to 0% with BRAD-III flow. There was BRAD-III flow into the first diagonal artery. The ostial diagonal vessel did not appear to be significantly different than compared to pre-stenting and there was BRAD-III flow into the vessel. CONCLUSIONS 1. STEMI; culprit long hazy 95% stenosis in the proximal LAD. 2. Otherwise severe three-vessel coronary artery disease in a right dominant system as detailed above. 3. Preserved LV systolic function, ejection fraction 65%. PLAN/RECOMMENDATIONS The patient has a history of heme-positive stool, therefore he is being loaded with 600 mg of p.o. Plavix as opposed to Effient. He will need Plavix 75 mg daily for 12-15 months. Aspirin 162 mg daily. Will start Coreg, Altace and Lipitor. Liver function tests. Treat lipids to NCEP guidelines. Strongly recommend smoking cessation and I have advised the patient myself personally to commence smoking cessation. I do think that due to the large size of the right posterolateral artery and the 95% stenosis that given the amount of jeopardized myocardium that PCI is indicated without symptoms. Will monitor the patient for symptoms in the morning and make a final decision in the a.m. based on whether or not he has symptoms after ambulating in the conn. MD VERONA Wayne/AUNG /9:18 PM /10:24 AM
[2017-07-21] MEDS ORDERED: NITROGLYCERIN-D5W 50 MG/250 ML 250 ML ONE (11:53)
--- NOTE | 2017-07-21 13:09 | PD.CONS ---
HPI History of Present Illness This is a 66 year old male who presented with c/o chest pain and was brought in as STEMI. S/p heart cath. Per EMR he had been having chest pain for 2-3 days and black tarry stool for 2-3 days. He admits frequent NSAID use for years. Has been started on plavix after cath. He has been taking alot of pepto bismol as well. He does not wish to contribute further, when I attempted to discuss the drop in Hbg and black stools with him, he repeats "we aint gonna do nothin about that." he does not wish to pursue EGD or colonoscopy. PFSH Past Medical History "my heart" s/p cath STEMI Past Surgical History noncontributory Coded Allergies: codeine (Verified Allergy, Severe, 07/20/17) Family History noncontributory Social History smokes 1 1/2 PPD Review of Systems Constitutional: DENIES: Fever Eyes: DENIES: Blurred vision Ears, nose, mouth, throat: DENIES: Hearing loss Gastrointestinal: COMPLAINS OF: Black stools, DENIES: Abdominal pain, Bloody stools, Nausea, Vomiting, Hematemesis Genitourinary: DENIES: Hematuria Neurologic: COMPLAINS OF: Headache Psychiatric: DENIES: Confusion GI Exam Vitals I&O Vital Signs Date Time Temp Pulse Resp B/P (MAP) Pulse Ox O2 Delivery O2 Flow Rate FiO2 07/21/17 08:00 98.3 90 20 161/92 (115) 98 07/21/17 06:00 88 07/21/17 05:08 81 152/97 07/21/17 05:00 92 07/21/17 04:37 94 160/98 07/21/17 04:00 90 07/21/17 03:00 96 07/21/17 03:00 98 Nasal Cannula 2.00 07/21/17 03:00 98.9 93 18 148/91 (110) 98 07/21/17 02:44 103 154/98 07/21/17 02:34 100 112/91 07/21/17 02:00 81 07/21/17 01:00 105 07/21/17 00:45 91 152/99 07/21/17 00:07 108 162/114 07/21/17 00:00 105 07/20/17 23:48 103 160/100 07/20/17 23:10 87 154/103 07/20/17 23:00 96 Nasal Cannula 2.00 07/20/17 23:00 88 07/20/17 23:00 98.4 93 18 166/111 (129) 96 07/20/17 22:50 81 153/100 07/20/17 22:46 92 07/20/17 22:05 93 151/104 07/20/17 22:00 93 157/111 07/20/17 21:50 93 166/111 07/20/17 20:26 07/20/17 19:44 101 22 149/83 (105) 07/20/17 19:44 Nasal Cannula 07/20/17 19:34 107 22 170/106 (127) 97 Nasal Cannula 2.00 07/20/17 19:25 100 3.00 07/20/17 19:25 100 Nasal Cannula 3.00 07/20/17 18:55 118 209/139 (162) 221/145 (170) 07/20/17 18:52 119 16 195/100 (131) 97 2.00 07/20/17 18:48 128 207/116 07/20/17 18:37 137 16 207/132 (157) 100 Nasal Cannula 2.00 07/20/17 18:32 98 Nasal Cannula 2.00 07/20/17 18:29 98.6 135 20 209/139 (162) 98 I/O 07/20/17 07/20/17 07/20/17 07/21/17 07/21/17 07/21/17 07:00 15:00 23:00 07:00 15:00 23:00 Intake Total 100 ml 842 ml Output Total 850 ml Balance 100 ml -8 ml Intake Oral 480 ml IV Total 100 ml 362 ml Output Urine Total 850 ml # Bowel Movements 0 Imaging Last Impressions Chest X-Ray 07/20/17 1840 Signed Impressions: Service Date/Time: Thursday, July 20, 2017 18:57 - CONCLUSION: 1. Blunting of the left costophrenic angle which could indicate scarring versus small effusion. 2. Mild scarring or atelectasis at the lung bases. 3. Mild hyperinflation. Kerwin Roldan MD Laboratory Test 07/20/17 18:50 07/21/17 04:15 White Blood Count 12.6 TH/MM3 9.7 TH/MM3 Red Blood Count 5.47 MIL/MM3 4.54 MIL/MM3 Hemoglobin 15.6 GM/DL 13.0 GM/DL Hematocrit 46.6 % 38.6 % Mean Corpuscular Volume 85.3 FL 85.1 FL Mean Corpuscular Hemoglobin 28.6 PG 28.5 PG Mean Corpuscular Hemoglobin Concent 33.5 % 33.5 % Red Cell Distribution Width 14.1 % 14.3 % Platelet Count 289 TH/MM3 255 TH/MM3 Mean Platelet Volume 8.4 FL 7.3 FL Neutrophils (%) (Auto) 74.7 % 74.0 % Lymphocytes (%) (Auto) 20.4 % 19.0 % Monocytes (%) (Auto) 4.2 % 5.9 % Eosinophils (%) (Auto) 0.3 % 0.6 % Basophils (%) (Auto) 0.4 % 0.5 % Neutrophils # (Auto) 9.4 TH/MM3 7.2 TH/MM3 Lymphocytes # (Auto) 2.6 TH/MM3 1.8 TH/MM3 Monocytes # (Auto) 0.5 TH/MM3 0.6 TH/MM3 Eosinophils # (Auto) 0.0 TH/MM3 0.1 TH/MM3 Basophils # (Auto) 0.0 TH/MM3 0.0 TH/MM3 CBC Comment DIFF FINAL DIFF FINAL Differential Comment Prothrombin Time 10.8 SEC Prothromb Time International Ratio 1.0 RATIO Activated Partial Thromboplast Time 27.5 SEC Blood Urea Nitrogen 15 MG/DL 14 MG/DL Creatinine 1.33 MG/DL 1.24 MG/DL Random Glucose 103 MG/DL 113 MG/DL Calcium Level 9.3 MG/DL 8.3 MG/DL Magnesium Level 2.2 MG/DL Sodium Level 136 MEQ/L 140 MEQ/L Potassium Level 4.2 MEQ/L 3.6 MEQ/L Chloride Level 103 MEQ/L 107 MEQ/L Carbon Dioxide Level 26.8 MEQ/L 27.8 MEQ/L Anion Gap 6 MEQ/L 5 MEQ/L Estimat Glomerular Filtration Rate 54 ML/MIN 58 ML/MIN Lactic Acid Level 1.4 mmol/L Total Creatine Kinase 451 U/L 1353 U/L Creatine Kinase MB 36.2 NG/ML 135.7 NG/ML Creatine Kinase MB % 8.0 % 10.0 % Troponin I 3.83 NG/ML Total Protein 6.8 GM/DL Albumin 3.5 GM/DL Alkaline Phosphatase 86 U/L Aspartate Amino Transf (AST/SGOT) 205 U/L Alanine Aminotransferase (ALT/SGPT) 40 U/L Total Bilirubin 0.4 MG/DL Direct Bilirubin 0.1 MG/DL Indirect Bilirubin 0.3 MG/DL Triglycerides Level 299 MG/DL Cholesterol Level 186 MG/DL LDL Cholesterol 102 MG/DL HDL Cholesterol 24.7 MG/DL Cholesterol/HDL Ratio 7.53 RATIO Date/Time Source Procedure Growth Status 07/20/17 18:50 Blood Peripheral Aerobic Blood Culture Pending Received 07/20/17 18:50 Blood Peripheral Anaerobic Blood Culture Pending Received Physical Examination HEENT: PERRL; normocephalic; atraumatic; no jaundice. CHEST: CTA CARDIAC: RRR ABDOMEN: Soft, nondistended, nontender; no hepatosplenomegaly; bowel sounds are present in all four quadrants. EXTREMITIES: No clubbing, cyanosis, or edema. Left foot amputated SKIN: Normal; no rash; no jaundice. PLANT SPRAYER: No focal deficits; alert and oriented times three. Assessment and Plan Plan ASSESSMENT - black stools, drop in hgb - presented as STEMI, s/p heart cath. drop in hgb from 15.6 on admission to 13.0, still WNL. pt admits both frequent prolonged NSAID use and recent use pepto bismol. Black stools for 2-3 days per pts . no abd pain or migdalia bleeding. Never had EGD or colonoscopy and is refusing them. d/w pt that he could have ulcer d/t NSAID use and he is at risk of further bleeding with continued use plavix which he will need for the next 12-15m per cardiology and he still refuses further w/u. PLAN - pt refusing endoscopy - monitor HH - IV protonix daily - transfuse if needed - supportive care This pt seen by myself and Dr Riley and this note is written on his behalf. Brea Das Jul 21, 2017 13:09
[2017-07-21] MEDS ORDERED: RAMIPRIL 5 MG CAP PO ONE (13:30)
[2017-07-21] MEDS ORDERED: hydrALAZINE HCL 20 MG/ML VIAL IV PUSH PRN (13:30)
--- NOTE | 2017-07-21 13:38 | EKG ---
Date Performed: 07/20/2017 Time Performed: 18:25:20 PTAGE: 66 years EKG: SINUS TACHYCARDIA WITH OCCASIONAL VENTRICULAR PREMATURE COMPLEXES MARKED LEFT AXIS DEVIATIO N ST ELEVATION, CONSIDER ANTEROSEPTAL INJURY ACUTE IA Q wave V1. ST elevation V1-V3, possible a cute infarct. Clinical correlation strongly recommended. NO PREVIOUS TRACING DOCTOR: Michael Perry Interpretating Date/Time 07/21/2017 13:36:29
--- NOTE | 2017-07-21 13:38 | EKG ---
Date Performed: 07/20/2017 Time Performed: 22:56:00 PTAGE: 66 years EKG: Sinus rhythm Leftward axis Possible left ventricular hypertrophy Ant/septal and lateral ST-T changes may be due t o hypertrophy and/or ischemia Septal infarct pattern new since prior tracing. Probable acute MT in ev olution Abnormal ECG PREVIOUS TRACING : 07/20/2017 18.25 DOCTOR: Michael Perry Interpretating Date/Time 07/21/2017 13:38:18
--- NOTE | 2017-07-21 13:54 | EKG ---
Date Performed: 07/21/2017 Time Performed: 05:29:00 PTAGE: 66 years EKG: Sinus rhythm with PAC(s) Possible septal infarct - age undetermined Lateral ST-T changes may be due to myocardial ischemia Abnormal ECG Compared to prior tracing no significant change PREVIOUS TRACING : 07/20/2017 22.56 DOCTOR: Michael Perry Interpretating Date/Time 07/21/2017 13:49:48
[2017-07-21] MEDS ORDERED: PANTOPRAZOLE SOD 40 MG DELAYED RELEASE TAB PO SCH (14:00)
[2017-07-21] MEDS ORDERED: ATORVASTATIN 20 MG TAB PO ONE (14:00)
[2017-07-21] MEDS ORDERED: FAMOTIDINE 20 MG/2 ML VIAL IV PUSH SCH (14:00)
[2017-07-21] MEDS ORDERED: PANTOPRAZOLE SODIUM 40 MG VIAL IV PUSH SCH (14:00)
--- NOTE | 2017-07-21 15:34 | PD.CARD.PN ---
Subjective Subjective Remarks ambulating without chest pain Objective Vital Signs / I&O Vital Signs Date Time Temp Pulse Resp B/P (MAP) Pulse Ox O2 Delivery O2 Flow Rate FiO2 07/21/17 13:39 98 129/71 07/21/17 13:00 80 07/21/17 12:00 90 07/21/17 11:00 98 Room Air 07/21/17 11:00 92 07/21/17 11:00 98.2 98 18 151/89 (109) 98 07/21/17 10:00 88 07/21/17 09:00 86 07/21/17 08:00 98 Room Air 07/21/17 08:00 90 07/21/17 08:00 98.3 90 20 161/92 (115) 98 07/21/17 07:00 88 07/21/17 06:00 88 07/21/17 05:08 81 152/97 07/21/17 05:00 92 07/21/17 04:37 94 160/98 07/21/17 04:00 90 07/21/17 03:00 96 07/21/17 03:00 98 Nasal Cannula 2.00 07/21/17 03:00 98.9 93 18 148/91 (110) 98 07/21/17 02:44 103 154/98 07/21/17 02:34 100 112/91 07/21/17 02:00 81 07/21/17 01:00 105 07/21/17 00:45 91 152/99 07/21/17 00:07 108 162/114 07/21/17 00:00 105 07/20/17 23:48 103 160/100 07/20/17 23:10 87 154/103 07/20/17 23:00 96 Nasal Cannula 2.00 07/20/17 23:00 88 07/20/17 23:00 98.4 93 18 166/111 (129) 96 07/20/17 22:50 81 153/100 07/20/17 22:46 92 07/20/17 22:05 93 151/104 07/20/17 22:00 93 157/111 07/20/17 21:50 93 166/111 07/20/17 20:26 07/20/17 19:44 101 22 149/83 (105) 07/20/17 19:44 Nasal Cannula 07/20/17 19:34 107 22 170/106 (127) 97 Nasal Cannula 2.00 07/20/17 19:25 100 3.00 07/20/17 19:25 100 Nasal Cannula 3.00 07/20/17 18:55 118 209/139 (162) 221/145 (170) 07/20/17 18:52 119 16 195/100 (131) 97 2.00 07/20/17 18:48 128 207/116 07/20/17 18:37 137 16 207/132 (157) 100 Nasal Cannula 2.00 07/20/17 18:32 98 Nasal Cannula 2.00 07/20/17 18:29 98.6 135 20 209/139 (162) 98 I/O 07/20/17 07/20/17 07/20/17 07/21/17 07/21/17 07/21/17 06:59 14:59 22:59 06:59 14:59 22:59 Intake Total 100 ml 842 ml 271 ml Output Total 850 ml Balance 100 ml -8 ml 271 ml Intake Oral 480 ml IV Total 100 ml 362 ml 271 ml Output Urine Total 850 ml # Bowel Movements 0 Physical Exam GENERAL: SKIN: Warm and dry. HEAD: Normocephalic. EYES: No scleral icterus. No injection or drainage. NECK: Supple, trachea midline. No JVD or lymphadenopathy. CARDIOVASCULAR: Regular rate and rhythm without murmurs, gallops, or rubs. RESPIRATORY: Breath sounds equal bilaterally. No accessory muscle use. GASTROINTESTINAL: Abdomen soft, non-tender, nondistended. MUSCULOSKELETAL: No cyanosis, or edema. BACK: Nontender without obvious deformity. No CVA tenderness. Laboratory Laboratory Tests Test 07/20/17 18:50 07/21/17 04:15 White Blood Count 12.6 TH/MM3 9.7 TH/MM3 Red Blood Count 5.47 MIL/MM3 4.54 MIL/MM3 Hemoglobin 15.6 GM/DL 13.0 GM/DL Hematocrit 46.6 % 38.6 % Mean Corpuscular Volume 85.3 FL 85.1 FL Mean Corpuscular Hemoglobin 28.6 PG 28.5 PG Mean Corpuscular Hemoglobin Concent 33.5 % 33.5 % Red Cell Distribution Width 14.1 % 14.3 % Platelet Count 289 TH/MM3 255 TH/MM3 Mean Platelet Volume 8.4 FL 7.3 FL Neutrophils (%) (Auto) 74.7 % 74.0 % Lymphocytes (%) (Auto) 20.4 % 19.0 % Monocytes (%) (Auto) 4.2 % 5.9 % Eosinophils (%) (Auto) 0.3 % 0.6 % Basophils (%) (Auto) 0.4 % 0.5 % Neutrophils # (Auto) 9.4 TH/MM3 7.2 TH/MM3 Lymphocytes # (Auto) 2.6 TH/MM3 1.8 TH/MM3 Monocytes # (Auto) 0.5 TH/MM3 0.6 TH/MM3 Eosinophils # (Auto) 0.0 TH/MM3 0.1 TH/MM3 Basophils # (Auto) 0.0 TH/MM3 0.0 TH/MM3 CBC Comment DIFF FINAL DIFF FINAL Differential Comment Prothrombin Time 10.8 SEC Prothromb Time International Ratio 1.0 RATIO Activated Partial Thromboplast Time 27.5 SEC Blood Urea Nitrogen 15 MG/DL 14 MG/DL Creatinine 1.33 MG/DL 1.24 MG/DL Random Glucose 103 MG/DL 113 MG/DL Calcium Level 9.3 MG/DL 8.3 MG/DL Magnesium Level 2.2 MG/DL Sodium Level 136 MEQ/L 140 MEQ/L Potassium Level 4.2 MEQ/L 3.6 MEQ/L Chloride Level 103 MEQ/L 107 MEQ/L Carbon Dioxide Level 26.8 MEQ/L 27.8 MEQ/L Anion Gap 6 MEQ/L 5 MEQ/L Estimat Glomerular Filtration Rate 54 ML/MIN 58 ML/MIN Lactic Acid Level 1.4 mmol/L Total Creatine Kinase 451 U/L 1353 U/L Creatine Kinase MB 36.2 NG/ML 135.7 NG/ML Creatine Kinase MB % 8.0 % 10.0 % Troponin I 3.83 NG/ML Total Protein 6.8 GM/DL Albumin 3.5 GM/DL Alkaline Phosphatase 86 U/L Aspartate Amino Transf (AST/SGOT) 205 U/L Alanine Aminotransferase (ALT/SGPT) 40 U/L Total Bilirubin 0.4 MG/DL Direct Bilirubin 0.1 MG/DL Indirect Bilirubin 0.3 MG/DL Triglycerides Level 299 MG/DL Cholesterol Level 186 MG/DL LDL Cholesterol 102 MG/DL HDL Cholesterol 24.7 MG/DL Cholesterol/HDL Ratio 7.53 RATIO Assessment and Plan Problem List: (1) CAD (coronary artery disease) ICD Codes: I25.10 - Atherosclerotic heart disease of [place] coronary artery without angina pectoris (2) Tobacco abuse ICD Codes: Z72.0 - Tobacco use (3) STEMI (ST elevation myocardial infarction) ICD Codes: I21.3 - ST elevation (STEMI) myocardial infarction of unspecified site Status: Acute Assessment and Plan 1.) CAD - assymptomatic s/p pci prox lad, ok to dc from cv standpoint on aspirin , plavix, lipitor, coreg, altace, [facility], strongly advised tobacco cessation; d/w patient and nurse Problem Qualifiers (1) STEMI (ST elevation myocardial infarction): Qualified Codes: I21.3 - ST elevation (STEMI) myocardial infarction of unspecified site Hardeep Mohan MD Jul 21, 2017 15:34
[2017-07-21] MEDS ORDERED: PANT40TA3 PO (18:03)
[2017-07-21] MEDS ORDERED: ASPI81CH25 PO (18:03)
[2017-07-21] MEDS ORDERED: PLAV75TA29 PO (18:03)
[2017-07-21] MEDS ORDERED: CARV3.125 PO (18:03)
[2017-07-21] MEDS ORDERED: RAMI5CAP PO (18:03)
[2017-07-21] MEDS ORDERED: ATOR40TA16 PO (18:03)
[2017-07-21] MEDS ORDERED: FAMO1TAB73 PO (18:04)
--- NOTE | 2017-07-21 18:15 | PD.AMA ---
Against Medical Advice Note Diagnosis: (1) GI bleed due to NSAIDs (2) STEMI (ST elevation myocardial infarction) Discharge Disposition: Against Medical Advice Pt Condition on Discharge: Deteriorating Recommended Treatment Course Patient had stenting done of his LAD, per cardiology did not need any further cardiac intervention. However given his obvious symptoms of melena and his dropping blood counts, patient was informed that he had a GI bleed that was likely due to his ibuprofen use and that we needed to get this immediately evaluated likely with a colonoscopy given that he is on 2 essential blood thinners that he needs to keep his heart vital. Patient was given risks and benefits of leaving too early, it was emphasized to him that his condition could deteriorate and that he could should he leave prematurely. Patient verbalized understanding. AMA Statement Patient Fei Villasenor has decided to leave the hospital against medical advice. This patient has the capacity to refuse care and understands the risks of leaving, including permanent disability and/or , and has had an opportunity to ask questions about his condition. The patient has been informed that he may return for care at any time, and follow up has been arranged/ advised. Jorden Schwartz MD Jul 21, 2017 18:15
[2017-07-21] MEDS ORDERED: ATORVASTATIN 10 MG TAB PO SCH (21:00)
[2017-07-21] MEDS ORDERED: ATORVASTATIN 40 MG TAB PO SCH (21:00)
== END 2017-07-21 18:20 | disposition left against medical advice (07) | DRG 248 ==
LOC: NEPC 18:28 → NEDA 19:30 → HCIS 21:39
PROVIDERS: ADMIT Hospitalist; ATTEND Hospitalist
PROC: 02703DZ Dilation of Coronary Artery, One Artery with Intraluminal Device, Percutaneous Approach (ICD-10-PCS; principal; 2017-07-20)
PROC: 4A023N7 Measurement of Cardiac Sampling and Pressure, Left Heart, Percutaneous Approach (ICD-10-PCS; 2017-07-20)
PROC: B2111ZZ Fluoroscopy of Multiple Coronary Arteries using Low Osmolar Contrast (ICD-10-PCS; 2017-07-20)
PROC: B2151ZZ Fluoroscopy of Left Heart using Low Osmolar Contrast (ICD-10-PCS; 2017-07-20)
DX: I25.10 Atherosclerotic heart disease of native coronary artery without angina pectoris (principal); I21.02 ST elevation (STEMI) myocardial infarction involving left anterior descending coronary artery; K92.1 Melena; I12.9 Hypertensive chronic kidney disease with stage 1 through stage 4 chronic kidney disease, or unspecified chronic kidney disease; E78.5 Hyperlipidemia, unspecified; F17.210 Nicotine dependence, cigarettes, uncomplicated; F43.10 Post-traumatic stress disorder, unspecified; T39.395A Adverse effect of other nonsteroidal anti-inflammatory drugs [NSAID], initial encounter; M47.9 Spondylosis, unspecified; N18.9 Chronic kidney disease, unspecified
CPT/HCPCS: 71010; 80048; 80061; 80076; 82550; 82552; 83605; 83735; 84484; 85002; 85025; 85347; 85610; 85730; 87040; 92941; 93005; 93458; 96365; 96375; C1725; C1769; C1874; C1887; C1893; J0171; J0461; J1644; J2060; J2250; J2270; J3010; J3246; J7030; Q9967

== ENCOUNTER 2017-07-24 15:29 | Inpatient (IN) | payer OTHER ==
[~2017-07-24] VITALS: Ht 177.8 cm; Wt 99.4 kg
[2017-07-24] VITALS (10 sets, daily range): BP systolic 146–209; BP diastolic 91–114; PULSE 85–108; RESP 16–25; TEMP 97.6–98.3; O2SAT 98–100
[~2017-07-24 15:29] MED LIST: ASPI81CH25 PO; ATOR40TA16 PO; CARV3.125 PO; FAMO1TAB73 PO; PANT40TA3 PO; PLAV75TA29 PO; RAMI5CAP PO
[2017-07-24] MEDS ORDERED: NITROGLYCERIN 0.4 MG SL 25 TABS/BTL SL STA (15:40)
[2017-07-24] MEDS ORDERED: ASPIRIN 81 MG CHEW TAB PO STA (15:40)
[2017-07-24] MEDS ORDERED: SODIUM CHLOR 0.9% 1000 ML INJ 1,000 ML IV ONE (15:40)
[2017-07-24] MEDS ORDERED: NITROGLYCERIN-D5W 50 MG/250 ML 250 ML IV PRN (15:45)
--- NOTE | 2017-07-24 15:50 | PD ---
HPI Chief Complaint: STEMI Alert Time Seen by Provider: 15:31 Travel History International Travel<30 days: No Contact w/Intl Traveler<30days: No Traveled to known affect area: No History of Present Illness HPI The patient is 66 years old. He arrives with retrosternal chest pain which started at rest about 30 minutes prior to ER arrival. He states the pain is severe. There is no radiation. The patient was here and left AGAINST MEDICAL ADVICE 3 days ago after he underwent coronary catheterization revealing "long hazy" LAD occlusion which was stented successfully. Patient states he filled his Plavix prescription yesterday. Associated symptoms include diaphoresis and shortness of breath. Patient received after EMS gave aspirin. PFSH Past Medical History Arthritis: Yes Cancer: No Cardiovascular Problems: Yes (CT WITH STENTS) Chest Pain: Yes COPD: Yes Endocrine: No Genitourinary: No Immune Disorder: No Musculoskeletal: Yes Neurologic: No Psychiatric: No Reproductive: No Respiratory: No ?: Not Past Surgical History Cardiac Surgery: Yes (stent LAD jul 2017) Social History Alcohol Use: No Tobacco Use: Yes Substance Use: No Allergies-Medications (Allergen,Severity, Reaction): Coded Allergies: codeine (Verified Allergy, Severe, 07/20/17) Reported Meds & Prescriptions Reported Meds & Active Scripts Active Pepcid (Famotidine) 40 Mg Tab 40 Mg PO BID Ramipril 5 Mg Cap 5 Mg PO BID Pantoprazole (Pantoprazole Sodium) 40 Mg Tab 40 Mg PO Q12HR Aspirin Low Strength (Aspirin) 81 Mg Chew 162 Mg PO DAILY Coreg (Carvedilol) 3.125 Mg Tab 3.125 Mg PO BID Atorvastatin (Atorvastatin Calcium) 40 Mg Tab 40 Mg PO HS Plavix (Clopidogrel Bisulfate) 75 Mg Tab 75 Mg PO DAILY Review of Systems Except as stated in HPI: all other systems reviewed are Neg General / Constitutional: No: Fever Cardiovascular: Positive: Chest Pain or Discomfort, Palpitations, Diaphoresis Respiratory: Positive: Shortness of Breath Physical Exam Narrative GENERAL: 66-year-old male well-nourished well-developed moderate distress secondary to pain and/or anxiety SKIN: Diaphoresis. Warm. HEAD: Atraumatic. Normocephalic. EYES: Pupils equal and round. No scleral icterus. No injection or drainage. ENT: No nasal bleeding or discharge. Mucous membranes pink and moist. NECK: Trachea midline. No JVD. CARDIOVASCULAR: Regular rate and rhythm. RESPIRATORY: Mild tachypnea. Lungs clear. GASTROINTESTINAL: Abdomen soft, non-tender, nondistended. Hepatic and splenic margins not palpable. RECTAL: Brown Guaiac positive stool. No red blood. MUSCULOSKELETAL: L below knee amputation. Otherwise grossly unremarkable. NEUROLOGICAL: Awake and alert. No obvious cranial nerve deficits. Motor grossly within normal limits. Five out of 5 muscle strength in the arms and legs. Normal speech. PSYCHIATRIC: Appropriate mood and affect; insight and judgment normal. Data Data Last Documented VS Vital Signs Date Time Temp Pulse Resp B/P (MAP) Pulse Ox O2 Delivery O2 Flow Rate FiO2 07/24/17 15:42 101 25 100 Nasal Cannula 2.00 07/24/17 15:42 97.7 209/114 (145) Vital signs reviewed Orders Orders Troponin I (07/24/17 15:40) Ckmb (Isoenzyme) Profile (07/24/17 15:40) Complete Blood Count With Diff (07/24/17 15:40) I-Stat Profile (07/24/17 15:40) I-Stat Creatinine (07/24/17 15:40) Calcium (07/24/17 15:40) Magnesium (Mg) (07/24/17 15:40) Prothrombin Time / Inr (Pt) (07/24/17 15:40) Act Partial Throm Time (Ptt) (07/24/17 15:40) B-Type Natriuretic Peptide (07/24/17 15:40) Chest, Single Ap (07/24/17 15:40) Electrocardiogram (07/24/17 15:40) Oxygen Administration (07/24/17 15:40) Iv Access Insert/Monitor (07/24/17 15:40) Oximetry (07/24/17 15:40) Sodium Chlor 0.9% 1000 Ml Inj (Ns 1000 M (07/24/17 15:40) Sodium Chloride 0.9% Flush (Ns Flush) (07/24/17 15:45) Aspirin Chew (Aspirin Chew) (07/24/17 15:40) Nitroglycerin Sl (Nitrostat Sl) (07/24/17 15:40) Nitroglycerin-D5w 50 Mg/250 Ml (Nitrogly (07/24/17 15:45) Morphine Inj (Morphine Inj) (07/24/17 16:00) Cardiac Catheterization (07/24/17 ) Heparin Inj (Heparin Inj) (07/24/17 15:57) Labs Laboratory Tests Test 07/24/17 15:38 White Blood Count 10.1 TH/MM3 Red Blood Count 4.92 MIL/MM3 Hemoglobin 14.0 GM/DL Hematocrit 42.1 % Mean Corpuscular Volume 85.5 FL Mean Corpuscular Hemoglobin 28.5 PG Mean Corpuscular Hemoglobin Concent 33.3 % Red Cell Distribution Width 14.6 % Platelet Count 314 TH/MM3 Mean Platelet Volume 8.1 FL Neutrophils (%) (Auto) 63.0 % Lymphocytes (%) (Auto) 25.4 % Monocytes (%) (Auto) 10.0 % Eosinophils (%) (Auto) 1.2 % Basophils (%) (Auto) 0.4 % Neutrophils # (Auto) 6.4 TH/MM3 Lymphocytes # (Auto) 2.6 TH/MM3 Monocytes # (Auto) 1.0 TH/MM3 Eosinophils # (Auto) 0.1 TH/MM3 Basophils # (Auto) 0.0 TH/MM3 CBC Comment DIFF FINAL Differential Comment MDM Medical Decision Making Medical Screen Exam Complete: Yes Emergency Medical Condition: Yes Medical Record Reviewed: Yes Differential Diagnosis NSTEMI, unstable angina, coronary vasospasm, PE, PTX, aortic dissection, pericarditis, myocarditis, endocarditis, PNA, esophageal disease, aneurysm, musculoskeletal etiologies, anxiety, cocaine/sympathomimetic abuse Narrative Course CBC & BMP Diagram 07/24/17 15:38 EKG reveals a sinus rhythm with a rate of 101, ST elevations are noted in V2 V3 and V4 with depressions in II, III and aVF Presentation concerning for acute coronary artery occlusion. STEMI alert activated. heparin/asa/morphine/nitro gtt The patient will be admitted for reperfusion therapy. D/w Dr Rodríguez. [email or web address] Cr 1.4 Hb 14.5 Critical Care Narrative Aggregate critical care time was 35 minutes. Time to perform other separately billable procedures was not included in the critical care time. My time did not include minutes spent treating any other patients simultaneously or on activities that did not directly contribute to the patient's treatment. The services I provided to this patient were to treat and/or prevent clinically significant deterioration that could result in: Cardiopulmonary arrest , permanent disability I provided critical care services requiring my management, as noted below: Chart data review, documentation time, medication orders and management, vital sign assessments/reviewing monitor data, ordering and reviewing lab tests, ordering and interpreting/reviewing x-rays and diagnostic studies, care of the patient and discussion of the patient with the admitting physicians. Diagnosis Primary Impression: STEMI (ST elevation myocardial infarction) Qualified Codes: I21.3 - ST elevation (STEMI) myocardial infarction of unspecified site Admitting Information Admitting Physician Requests: Admit Shmuel Grewal MD Jul 24, 2017 15:50
[2017-07-24 15:57] LABS: AUTOMATED NEUTROPHIL # 6.4 TH/MM3 (1.8-7.7); BASOPHIL % 0.4 % (0.0-2.0); EOSINOPHIL # 0.1 TH/MM3 (0-0.4); EOSINOPHIL % 1.2 % (0.0-4.0); HEMATOCRIT 42.1 % (39.0-51.0); HEMO FLAGS DIFF FINAL; LYMPH % 25.4 % (9.0-44.0); LYMPHOCYTE # 2.6 TH/MM3 (1.0-4.8); MEAN CELL VOLUME 85.5 FL (80.0-100.0); MEAN CORPUSCULAR HEMOGLOBIN 28.5 PG (27.0-34.0); MEAN CORPUSCULAR HGB CONC 33.3 % (32.0-36.0); PLATELET COUNT 314 TH/MM3 (150-450); RED BLOOD COUNT 4.92 MIL/MM3 (4.50-5.90); RED CELL DISTRIBUTION WIDTH 14.6 % (11.6-17.2); WHITE BLOOD COUNT 10.1 TH/MM3 (4.0-11.0)
[2017-07-24] MEDS ORDERED: HEPARIN SODIUM - IV 10,000 UNITS/10 ML VIAL IV STA (15:57)
[2017-07-24] MEDS ORDERED: MORPHINE SULFATE 4 MG/ML INJ IV PUSH ONE (16:00)
[2017-07-24 16:02] LABS: I-STAT POTASSIUM 3.8 MMOL/L (3.5-4.9); I-STAT SODIUM 140 MMOL/L (138-146)
[2017-07-24 16:05] LABS: APTT (PATIENT) 25.9 SEC (24.3-30.1); PROTHROMBIN TIME - PATIENT 10.8 SEC (9.8-11.6)
[2017-07-24] MEDS ORDERED: HEPARIN-NS/PF INJ 1,000 ML ONE (16:08)
[2017-07-24] MEDS ORDERED: NITROGLYCERIN INJ 5 ML ONE (16:09)
[2017-07-24] MEDS ORDERED: HEPARIN SODIUM - IV 10,000 UNITS/10 ML VIAL ONE (16:09)
[2017-07-24] MEDS ORDERED: MIDAZOLAM HCL 2 MG/2 ML VIAL ONE (16:09)
[2017-07-24] MEDS ORDERED: IOHEXOL 350 MG/ML 100 ML BTL (for Cath Lab) OTHER ONE (16:11)
[2017-07-24 16:21] LABS: MAGNESIUM 2.3 MG/DL (1.5-2.5)
[2017-07-24 16:26] LABS: CREATINE KINASE 128 U/L (39-308)
[2017-07-24] MEDS ORDERED: MORPHINE SULFATE 8 MG/ML INJ ONE (16:28)
[2017-07-24] MEDS ORDERED: MIDAZOLAM HCL 5 MG/5 ML VIAL ONE (16:28)
[2017-07-24] MEDS ORDERED: BIVALIRUDIN 250 MG VIAL ONE ×2 (16:35→16:54)
[2017-07-24] MEDS ORDERED: STERILE WATER FOR INJECTION 10 ML VIAL ONE (16:35)
[2017-07-24] MEDS ORDERED: HYDROmorphone HCL PF 2 MG/ML VIAL ONE (16:46)
[2017-07-24] MEDS ORDERED: CLOPIDOGREL 300 MG TAB ONE (16:54)
--- NOTE | 2017-07-24 16:54 | RADRPT ---
EXAM DATE/TIME: 07/24/2017 16:04 [facility] COMPARISON: CHEST SINGLE AP, July 20, 2017, 18:57. INDICATIONS : Chest pain, stemi alert. MEDICAL HISTORY : Myocardial infarction. Chronic obstructive pulmonary disease. SURGICAL HISTORY : Stents ENCOUNTER: Initial ACUITY: 1 day PAIN SCORE: 10/10 LOCATION: Left upper chest FINDINGS: Slight cardiomegaly seen. Lungs are clear. CONCLUSION: Slight cardiomegaly. Beatriz Caceres MD on July 24, 2017 at 16:52 Board Certified Radiologist. This report was verified electronically.
[2017-07-24] MEDS ORDERED: LABETALOL HCL 100 MG/20 ML VIAL ONE (17:04)
[2017-07-24 17:05] LABS: CKMB 3.5 NG/ML (0.5-3.6)
[2017-07-24] MEDS ORDERED: BIVALIRUDIN INJ 250 MG in SODIUM CHLORIDE 0.9% INJ 50 ML IV SCH (17:16)
[2017-07-24] MEDS ORDERED: SODIUM CHLOR 0.9% 1000 ML INJ 1,000 ML IV SCH (17:16)
--- NOTE | 2017-07-24 17:22 | CATHPROC ---
[employer] HIS Report Study Information Study Number Admission Scheduled Start Study Start [id number] Jul 24 2017 3:29PM 07/24/2017 Jul 24 2017 4:10PM [facility] Cardiac Catheterization Admit Source Facility Department Emergency department [facility] - [employer] Physician and Clinical Staff Initial Pedro Begum Administration InternBelén Avendano,COBY Administration InternJemma Carranza,COBY Other Aaron Thomas,EDWARD Recorder Marce Keita,RT(R) Scrub Margarito Chao,RT(R) Procedures Performed Procedure Location (Site) Vessel Name Coronary Angiograms LCA Left Coronary Coronary Angiograms RCA Right Coronary L Heart Cath LV Gram-hand inj. LV LV Ventricle PTCA LAD Prox Left Coronary Wire insertion Fem Art (left) Femoral Art Wire insertion Fem Art (right) Femoral Art Equipment Time Television Inspector Description Size Mfg Part Number Used/Scraped PERCLOSE, PRO GLIDE CLOSER 16:55 [employer] FR 6 [id number] *[id number] Used DEVICE WIRE, BALANCE MIDDLEWEIGHT [id number] 16:41 [employer] 190CM Used 190CM *[id number] TRANSDUCER, TRUWAVE [id number] 16:32 RUFF SMITH * Used W/STOCKCOOur Security Team *[id number] BALLOON, 3.5 [place] [id number] 17:15 [employer]OSTON [employer] 3.5 12MM Used QUANTUM APEX MR *[id number]- INTRODUCER SET, 16:32 [employer]. FR 5 SC-NT-U-SST Used MICROPUNCTURE, STIFFENED *[id number] 534-521T *[id number] 534-521T *[id number] 16:32 [employer] INDUSTRIES PACK, CCL CUSTOM * Used *[id number] BALLOON, 3.0 X 12MM NC [id number] 16:37 MEDTRONIC 12MM Used EUPHORA *[id number] 16:31 MEDTRONIC/AVE EBU 3.5 Z2 GUIDE CATHETER FR 6 Used *[id number] 16:28 MEDTRONIC/AVE EBU 3.5 Z2 GUIDE CATHETER FR 6 Used *[id number] 16:38 [employer] MEDICAL 30 REJI INDEFLATOR Used *[id number] 16:32 [employer] WIRE, 3MMJ .035 180CM 180CM Used *[id number] 16:32 NAMIC MANIFOLD, 4 PORT * Used *[id number] 16:32 NYCOMED OMNIPAQUE, 350 MG, 150ML 150ML [id number] Used [id number] 16:32 CARTER MEDICAL BLANKET,WARM AIR CCL * Used *[id number] 16:32 TERUMO MEDICAL SHEATH, FR5 TERUMO (10CM) FR 5 Used *[id number] WIRE, RUNTHROUGH NS FLOPPY [id number] 16:32 TERUMO MEDICAL 180CM Used .014 180CM *[id number] History: Current Medications Medication Dosage/Unit Route Frequency Last Date/Time Taken ASA History: Allergies Allergy Reaction codeine History: Risk Factors Family History of Hypertension Dyslipidemia Previous FL Previous Heart Failure Premature CAD Yes No No No No Prior Valve Prior PCI Prior CABG Surgery No No No Cerebrovascular Peripheral Artery Chronic Lung On Dialysis Diabetes Disease Disease Disease No No No No No History: Risk Factors Selection Items Current Smoker History: Symptoms/Diagnosis Selection Items Chest pain SOB History: Stress Tests Stress or Imaging Studies Performed No History: Other Disease Selection Items HTN History: Other Current Smoker Method Packs a Day Years Used Pack Years Yes Cigarettes 2 50 100 Labs Hgb (g/dl) Hct (%) WBC (l/cumm) Platelets (thousands) 11.60-17.00 35.00-51.00 4.00-11.00 150.00-450.00 14.0 42.1 10.1 314 Glucose (mg/dl) BUN (mg/dl) Creatinine (mg/dl) BUN:Creatinine (1:x) 74.00-106.00 7.00-18.00 0.50-1.30 10.00-20.00 128 29 1.4 20.7 Na (meq/l) K (meq/l) 136.00-145.00 3.50-5.10 140 3.8 PT (sec) PTT (sec) INR (PTT:PT) 9.80-11.60 24.30-30.10 0.90-1.10 10.8 25.9 1 Troponin I (ng/ml) CPK (u/l) 0.02-0.05 26.00-308.00 5.1 128 Medication Medication Total Dose (Bolus/Oral) Medication Total Dosage/Unit 1% XYLOCAINE 10 mL ANGIOMAX BOLUS 13 mL Dilaudid 1 mg FENTANYL 75 mcg LABETOLOL 20 mg MORPHINE 8 mg PLAVIX 600 mg VERSED 4 mg Medications (Bolus/Oral) Medication Time Given Dosage/Unit Administered By Reason VERSED 07/24/2017 4:24:17 PM 2 mg Belén Hart 2 mg VERSED given in lab by Belén Hart RN in Left Hand via Peripheral IV. Ordered by Pedro Trejo. FENTANYL 07/24/2017 4:25:21 PM 50 mcg Belén Hart 50 mcg FENTANYL given in lab by Belén Hart RN in Left Hand via Peripheral IV. Ordered by Pedro Ibarra. 1% XYLOCAINE 07/24/2017 4:27:51 PM 10 mL Pedro Trejo 10 mL 1% XYLOCAINE given in lab by Pedro Trejo in Left Groin via Subcutaneous. Ordered by Pedro Balderas. MORPHINE 07/24/2017 4:29:22 PM 4 mg Belén Hart 4 mg MORPHINE given in lab by Belén Hart RN in Left Hand via Peripheral IV. Ordered by Pedro Ferreira. VERSED 07/24/2017 4:30:30 PM 1 mg Jemma Reynolds 1 mg VERSED given in lab by Jemma Reynolds RN in Left Hand via Peripheral IV. Ordered by Pedro Trejo. ANGIOMAX BOLUS 07/24/2017 4:37:00 PM 13 mL Belén Hart 13 mL ANGIOMAX BOLUS given in lab by Belén Hart RN in Left Hand via Peripheral IV. Ordered by Pedro Lacey. MORPHINE 07/24/2017 4:40:00 PM 4 mg Belén Hart 4 mg MORPHINE given in lab by Belén Hart RN in Left Hand via Peripheral IV. Ordered by Pedro Ferreira. VERSED 07/24/2017 4:44:15 PM 1 mg [place], Jemma 1 mg VERSED given in lab by Jemma Reynolds RN in Left Hand via Peripheral IV. Ordered by Pedro Trejo. FENTANYL 07/24/2017 4:45:00 PM 25 mcg Belén Hart 25 mcg FENTANYL given in lab by Belén Hart RN in Left Hand via Peripheral IV. Ordered by Pedro Ibarra. Dilaudid 07/24/2017 4:47:00 PM 1 mg Belén Hart 1 mg Dilaudid given in lab by Belén Hart RN in Left Hand via Peripheral IV. Ordered by Pedro Ferreira. PLAVIX 07/24/2017 5:00:00 PM 600 mg Belén Hart 600 mg PLAVIX given in lab by Belén Hart, COBY via Oral. Ordered by Pedro Trejo. LABETOLOL 07/24/2017 5:05:32 PM 20 mg Belén Hart 20 mg LABETOLOL given in lab by Belén Hart RN in Left Hand via Peripheral IV. Ordered by Pedro Ibarra. Medication (Drip) Medication Time Given Dosage/Unit Concentration/Unit Diluent (ml) Solution ANGIOMAX DRIP 07/24/2017 4:38:00 PM 1.672 mg/kg/hr 250 mg 50 NaCl .9 1.672 mg/kg/hr ANGIOMAX DRIP given in lab by Belén Hart RN in Left Hand via Peripheral IV. Pump /Drip Flow = 30.1 ml/hr using NaCl .9 with a concentration of 250 mg in 50 ml. Ordered by Pedro Trejo. Chronological Log Time Study Chronological Log 16:11:00 Patient arrived via Bed. Vitals capture started with the following parameters, Patient=Adult, Interval=5 min, Initial P ouldfns=194 mmHg, 16:19:28 Deflation Rate=5 mmHg, Cuff placed on Left Arm 16:19:49 Patient Name, D.O.B, / Armband Verified By R.N. 16:19:50 Consent signed by the physician and the patient and verified by the [employer] staff. 16:19:52 Pre-op and post- op instructions given; patient acknowledges understanding of instructions . Verbal Stimulation=~VERBAL~ Physical Stimulation=~PHYSICAL~ Airway=~AIRWAY~ Respiration=~RESPI RATION~ 16:19:54 TOTAL=~TOTAL~. (0=absent, 1=limited, 2=present) 16:20:11 SJ=614 bpm, SYHY=393/98 mmhg, SpO2=92.0 %, Resp=27 B/min 16:20:13 Patient has been NPO for Less than 6Hrs. 16:20:41 Skin Breakdown- large right groin bruise 16:20:50 Disposable Defibrillator Pads Placed On Patient. 16:20:54 Patient Warmer Placed on the Table. 16:20:55 Naomi Prominences Protected 16:21:06 A # 18 IV was noted in the Hand (left). Grade = 0 16:21:06 A # 20 IV was noted in the Antecubital (right). Grade = 0 16:21:18 Left groin prepped with 2% chlorhexidine, and draped after a 3 min. waiting time. 16:21:34 Table restraints applied according to hospital policy 16:22:12 Reference ECG taken 16:24:17 2 mg VERSED given in lab by Belén Hart, COBY in Left Hand via Peripheral IV. Ordered by Pedro Trejo. 16:25:21 50 mcg FENTANYL given in lab by Belén Hart, COBY in Left Hand via Peripheral IV. Ordere d by Pedro Trejo. 16:25:43 OW=835 bpm, XEMD=776/146 mmhg, SpO2=99.0 %, Resp=19 B/min, Pain=10 16:25:47 Pressure channel 1 zeroed. Time Out. Correct patient, correct procedure,correct physician, ,power injector loaded or not loaded with contrast with 16:27:07 surgical team present. Time Out Concurred by MD, individual staff and PAR[employer] EDUCATION ASSISTANT in procedure 16:27:17 Case Start 10 mL 1% XYLOCAINE given in lab by Pedro Trejo in Left Groin via Subcutaneous. Ordered b y Maya 16:27:51 . 16:29:22 4 mg MORPHINE given in lab by Belén Hart RN in Left Hand via Peripheral IV. Ordered by Pedro Trejo. 16:30:13 CH=553 bpm, QVOW=706/131 mmhg, SpO2=97.0 %, Resp=18 B/min 16:30:30 1 mg VERSED given in lab by Jemma Reynolds RN in Left Hand via Peripheral IV. Ordered by Rodríguez-Aisha, . 16:31:13 Access site was Left Femoral Artery. 16:31:31 A sheath was advanced into the Fem Art (left) using the Percutaneous technique. A JR 4.0 INFINITI CATHETER FR 5 was advanced over a wire. OMNIPAQUE, 350 MG, 150ML 150ML was u sed for 16:32:36 injections. 16:32:50 The LV was manually injected with 5 cc's and visualized. OMNIPAQUE, 350 MG, 150ML 150ML us ed. 16:33:00 The RCA was injected and visualized at various angles. OMNIPAQUE, 350 MG, 150ML 150ML used . Recorded Pressure: LV, GV=792, Condition=Condition 1 16:33:01 (Left Ventricle) LV 176/31/36 Recorded Pressure: LV, Ao, WC=563, Condition=Condition 1 16:33:11 (Left Ventricle) LV 177/30/39, (Aorta) Ao 185/130/156 After removing the current catheter a EBU 3.5 Z2 GUIDE CATHETER FR 6 was advanced over a WIRE, 3MMJ .035 16:34:01 180CM 180CM. 16:34:59 The LCA was injected and visualized at various angles. OMNIPAQUE, 350 MG, 150ML 150ML used . 16:35:12 TS=767 bpm, LDJL=959/130 mmhg, SpO2=99.0 %, Resp=19 B/min Recorded Pressure: Ao, HR=96, Condition=Condition 1 16:35:31 (Aorta) Ao 175/116/144 16:35:57 A WIRE, RUNTHROUGH NS FLOPPY .014 180CM 180CM was inserted via Fem Art (left). 13 mL ANGIOMAX BOLUS given in lab by Belén Hart, RN in Left Hand via Peripheral IV. Ordere d by Maya, 16:37:00 . A BALLOON, 3.0 X 12MM NC EUPHORA 12MM was inserted over WIRE, RUNTHROUGH NS FLOPPY .014 180CM 1 80CM 16:37:02 via the Fem Art (left). A BALLOON, 3.0 X 12MM NC EUPHORA 12MM over a WIRE, RUNTHROUGH NS FLOPPY .014 180CM 180CM in the LAD 16:37:15 Prox was inflated using a 30 REJI INDEFLATOR at 12 reji for 15 sec. 1.672 mg/kg/hr ANGIOMAX DRIP given in lab by Belén Hart, COBY in Left Hand via Peripheral IV . Pump/Drip Flow = 16:38:00 30.1 ml/hr using NaCl .9 with a concentration of 250 mg in 50 ml. Ordered by Pedro Trejo. A BALLOON, 3.0 X 12MM NC EUPHORA 12MM over a WIRE, RUNTHROUGH NS FLOPPY .014 180CM 180CM in the LAD 16:38:14 Prox was inflated using a 30 REJI INDEFLATOR at 14 reji for 15 sec. 16:40:00 4 mg MORPHINE given in lab by Belén Hart, COBY in Left Hand via Peripheral IV. Ordered b y Pedro Trejo. 16:40:07 Balloon Removed. 16:40:09 VD=951 bpm, KUGZ=814/112 mmhg, SpO2=98.0 %, Resp=17 B/min 16:40:31 A WIRE, BALANCE MIDDLEWEIGHT 190CM 190CM was inserted via Fem Art (right). 16:44:15 1 mg VERSED given in lab by Jemma Reynolds, RN in Left Hand via Peripheral IV. Ordered by Pedro Trejo. 16:45:00 25 mcg FENTANYL given in lab by Belné Hart RN in Left Hand via Peripheral IV. Ordered by Pedro Trejo. 16:45:10 RY=598 bpm, MUSB=945/117 mmhg, SpO2=97.0 %, Resp=12 B/min A BALLOON, 3.5 12MM NC QUANTUM APEX MR 3.5 12MM was inserted over WIRE, BALANCE MIDDLEWEIGHT 19 0CM 16:46:00 190CM via the Fem Art (left). A BALLOON, 3.5 12MM NC QUANTUM APEX MR 3.5 12MM over a WIRE, BALANCE MIDDLEWEIGHT 190CM 190CM i n the 16:46:52 LAD Prox was inflated using a 30 REJI INDEFLATOR at 16 reji for 25 sec. 16:47:00 1 mg Dilaudid given in lab by Belén Hart, RN in Left Hand via Peripheral IV. Ordered b y Pedro Trejo. 16:47:34 Balloon Removed. 16:50:13 KT=742 bpm, JRTO=124/105 mmhg, SpO2=98.0 %, Resp=10 B/min A BALLOON, 3.5 12MM NC QUANTUM APEX MR 3.5 12MM was inserted over WIRE, RUNTHROUGH NS FLOPPY .0 14 16:51:57 180CM 180CM via the Fem Art (left). A BALLOON, 3.5 12MM NC QUANTUM APEX MR 3.5 12MM over a WIRE, RUNTHROUGH NS FLOPPY .014 180CM 18 0CM 16:52:08 in the LAD Prox was inflated using a 30 REJI INDEFLATOR at 12 reji for 12 sec. 16:52:27 Balloon Removed. 16:52:35 Wires removed 16:53:00 An injection in the Fem Art (left) was made through the SHEATH, FR5 TERUMO (10CM) FR 5. 16:53:59 Lab called with a critical lab value, Bryan 5.1MD notified. 16:55:10 BI=054 bpm, QOJK=902/103 mmhg, SpO2=97.0 %, Resp=17 B/min 16:56:03 PERCLOSE, PRO GLIDE CLOSER DEVICE FR 6 placement in the Fem Art (left) 16:57:00 Case End 17:00:00 600 mg PLAVIX given in lab by Belén Hart RN via Oral. Ordered by Pedro Trejo. 17:00:07 FN=244 bpm, QNCH=173/103 mmhg, TgF8=773.0 %, Resp=14 B/min, Pain=3 17:01:16 Sterile dressing applied to site 17:01:17 No case complications noted. 17:01:19 Cine recording checked. 17:01:21 Bedside Report will be given. 17:01:26 Contrast Scanned 17:01:32 A Left Heart Cath was performed. 17:05:09 SK=146 bpm, RSUX=300/107 mmhg, ZlX8=425.0 %, Resp=19 B/min 17:05:32 20 mg LABETOLOL given in lab by Belén Hart, COBY in Left Hand via Peripheral IV. Ordere d by Pedro Trejo. 17:09:00 Patient moved to bed 17:10:12 Vitals capture stopped. End Study - Contrast Media Used In Study Contrast Total Opened (mL) Total Used (mL) Total Wasted (mL) Omnipaque 70 70 0 End Study - Maximum Contrast Load Max Contrast Load (mL) 321.4 End Study - Radiation Exposure Fluoro Time (minutes) 9.4 End Study - Patient Disposition Complications Transferred To Interventional Outcome No Telemetry Bed successful
[2017-07-24] MEDS ORDERED: MISC INFORMATION XX ONE (17:30)
[2017-07-24] MEDS ORDERED: ONDANSETRON HCL 4 MG/2 ML VIAL IV PUSH PRN (17:30)
[2017-07-24] MEDS ORDERED: ATROPINE SULFATE 1 MG/ML VIAL IV PUSH PRN (17:30)
[2017-07-24] MEDS ORDERED: ACETAMINOPHEN 325 MG TAB PO PRN (17:30)
[2017-07-24] MEDS ORDERED: CLOPIDOGREL 300 MG TAB PO ONE (17:30)
--- NOTE | 2017-07-24 17:57 | MB ---
cc: AFTAB ARDON DATE OF CONSULTATION 07/24/17 1950 REASON FOR CONSULTATION Chest pain ST-elevation MD. HISTORY OF PRESENT ILLNESS 66 year old male with known coronary artery disease status post recent LAD stent at the beginning of July who presented to the emergency department complaining of acute onset of chest discomfort radiating to the left shoulder and back associated with nausea. The patient on previous hospitalization when they put the stent left AMA. At that time he was put on aspirin and Plavix, however, he stated he was not taking the Plavix at home. In the ER, EKG concerning for acute ST elevation concerning for myocardial injury. REVIEW OF SYSTEMS Negative except for what is mentioned in HPI. PAST MEDICAL HISTORY 1. CAD status post stent in the LAD 2. Arthritis, 3. COPD, smoker. 4. Hyperlipidemia, 5. Obesity. FAMILY HISTORY Noncontributory PAST SURGICAL HISTORY Stent placement in the LAD on July 2017 ALLERGIES CODEINE MEDICATIONS Home 1. Ramipril 5 mg p.o. daily, 2. Pantoprazole 40 mg p.o. daily, 3. Aspirin 81 mg p.o. daily, 4. Coreg 3.125 mg p.o. b.i.d., 5. Atorvastatin 40 mg p.o. daily 6. Plavix 75 mg p.o. daily which he was not taking. FAMILY HISTORY Noncontributory PHYSICAL EXAMINATION VITAL SIGNS: Temperature 97, heart rate of 110, respirations 22, blood pressure 153/107, O2 sat 100% in room air. GENERAL: He is in distress. He is complaining of chest pain. He is alert and oriented times three. NECK: No JVD, no carotid bruits. HEART: Tachycardic. No murmurs, rubs or gallops. LUNGS: Clear to auscultation bilaterally. No rhonchi or rales. No wheezing. ABDOMEN: Obese, benign, soft, nontender, nondistended with positive bowel sounds. EXTREMITIES: No cyanosis or edema. there is a hematoma on the left groin. LABORATORY DATA Hemoglobin 14, Hematocrit 42, platelet count 314, troponin 5.1. EKG - sinus tachycardia with ST elevation in the anterior leads. ASSESSMENT/PLAN A 66-year-old male who presents with a STEMI in the setting of noncompliance with dual antiplatelet agents. The patient remains hemodynamically stable, however, complaining of severe chest pain. Possible acute stent thrombosis. At this point, we will take him emergently to the cardiac lab director for primary PCI. Risks and benefits of left heart cath/PCI including but not limited to neurovascular trauma, bleeding, infection, acute kidney injury, stroke, emergent bypass surgery and have been explained to the patient. The patient understands the risks and he is willing to procedure. Thank you for the opportunity to participate in the care of this patient. Further management to be determined. MD ROSALIND Nicolas/SA /5:06 PM /5:42 PM MTDRadha
[2017-07-24] MEDS ORDERED: ASPIRIN 81 MG CHEW TAB PO SCH (18:00)
[2017-07-24] MEDS ORDERED: FUROSEMIDE 40 MG/4 ML VIAL IV PUSH ONE (19:30)
[2017-07-24] MEDS ORDERED: NITROGLYCERIN-DEXTROSE 5% 250 ML for hypertension IV PRN (19:30)
[2017-07-24] MEDS: RESP: ALBUTEROL 2.5 MG/IPRATROPIUM 0.5 MG NEB (SCH) NEB (19:43)
[2017-07-24] MEDS: MORPHINE SULFATE 4 MG/ML INJ IV PUSH PRN ×2 (20:02→22:12)
--- NOTE | 2017-07-24 20:07 | RADRPT ---
EXAM DATE/TIME: 07/24/2017 19:39 [place] COMPARISON: CHEST SINGLE AP, July 24, 2017, 16:04. INDICATIONS : Shortness of breath and wheezing. MEDICAL HISTORY : None. SURGICAL HISTORY : None. ENCOUNTER: Subsequent ACUITY: 1 day PAIN SCORE: 0/10 LOCATION: chest FINDINGS: A single view of the chest demonstrates blunting of the left costophrenic angle most characteristic o f a small effusion. Minimal basilar atelectasis. Heart size mildly enlarged. No pneumothorax. Emphyse ma. CONCLUSION: 1. Small left effusion. Basilar atelectasis. Emphysema. Jesse Rodríguez MD on July 24, 2017 at 20:05 Board Certified Radiologist. This report was verified electronically.
[2017-07-24] MEDS ORDERED: ATORVASTATIN 10 MG TAB PO SCH (21:00)
--- NOTE | 2017-07-24 21:10 | MA ---
cc: AFTAB ARDON DATE 07/24/17 DATE OF 1950 PROCEDURE PERFORMED 1. Left heart catheterization. 2. Selective right and left coronary angiography. 3. Successful POBA to acute in-stent thrombosis of proximal LAD. APPROACH Left transfemoral. SEDATION RN sedation. DESCRIPTION OF PROCEDURE Consent signed. The patient was brought into the cardiac catheterization lab in a fasting state. The left groin was prepped and draped in sterile fashion using 1% lidocaine for local anesthesia, micropuncture kit a 6-Kazakh sheath was inserted into the left common femoral artery. Left common femoral artery angiography was performed to confirm position of the sheath. Then selective right and left coronary angiography was performed with a JR-4 diagnostic catheters and EBU 3.56 Kazakh guide. Angiography was taken in multiple views. We identified an acute stent thrombosis of the proximal LAD for which the LAD was wired with a run-through wire. This was followed by insertion of a 3-0 x 12 noncompliant balloon which was inflated 2 hemispheres and a noncompliant 3.5 12 also inflated to high pressures. The patient has successful reperfusion of the vessel with BRAD III flow. He went into reperfusion rhythm. He remained stable with a blood pressure and heart rate and improvement of symptoms. The patient tolerated the procedure well without complications. Estimated blood loss less than 30 cc. Total contrast used 70 cc. The right groin access site was closed with a Perclose device. RESULTS LEFT VENTRICLE The left ventricular pressure was 176/31 with an LVEDP of 36. The aortic pressure was 175/116 with a mean of 144. There was no gradient upon pullback from the left ventricle to aorta. ANGIOGRAPHY 1. Right coronary artery. The right coronary artery is a dominant vessel giving off the PDA. It has no significant obstructions and is unchanged from previous cath. The PDA is wide open and patent and the PLV branch has a 30% lesion proximally. 2. Left main: The left main has 40% lesion distally, unchanged from previous cath. 3. The LAD is 100% occluded right at the stent insertion. 4. The left circumflex artery is composed of two main OM vessels and an AV groove circ. These vessels are patent with BRAD III flow and none significant obstructive coronary artery disease. CONCLUSION 1. Successful POBA to proximal LAD in the setting of acute stent thrombosis due to noncompliant with DAPT. 2. Elevated LVEDP. RECOMMENDATIONS Admit to [facility] for post cath care. The patient will continue on Angiomax for the next 4 hours. He was started on an loading dose of Plavix and given aspirin and continue aggressive medical management for secondary prevention of CAD including therapeutic lifestyle changes such as smoking cessation, exercise and diet. 2Decho. MD ROSALIND Nicolas/MARINA /5:11 PM /8:48 PM MTDRadha
[2017-07-24] MEDS: CARVEDILOL 3.125 MG TAB PO SCH (21:17)
[2017-07-25] VITALS (24 sets, daily range): BP systolic 132–150; BP diastolic 64–99; PULSE 74–118; RESP 16–22; TEMP 97.3–98.6; O2SAT 94–98
[2017-07-25] MEDS: RESP: ALBUTEROL 2.5 MG/IPRATROPIUM 0.5 MG NEB (SCH) NEB ×7 (00:34→23:48)
[2017-07-25] MEDS: MORPHINE SULFATE 4 MG/ML INJ IV PUSH PRN ×5 (03:33→23:21)
[2017-07-25 06:01] LABS: AUTOMATED NEUTROPHIL # 8.8 TH/MM3 (1.8-7.7); BASOPHIL % 0.2 % (0.0-2.0); EOSINOPHIL % 0.1 % (0.0-4.0); HEMATOCRIT 37.8 % (39.0-51.0); HEMO FLAGS DIFF FINAL; LYMPH % 12.6 % (9.0-44.0); LYMPHOCYTE # 1.4 TH/MM3 (1.0-4.8); MEAN CORPUSCULAR HEMOGLOBIN 28.7 PG (27.0-34.0); MEAN CORPUSCULAR HGB CONC 33.8 % (32.0-36.0); MONO % 6.7 % (0.0-8.0); NEUT % 80.4 % (16.0-70.0); PLATELET COUNT 254 TH/MM3 (150-450); RED BLOOD COUNT 4.45 MIL/MM3 (4.50-5.90); RED CELL DISTRIBUTION WIDTH 14.5 % (11.6-17.2)
[2017-07-25 06:26] LABS: BICARBONATE 28.3 MEQ/L (21.0-32.0); HDL CHOLESTEROL 28.2 MG/DL (40.0-60.0); POTASSIUM 3.2 MEQ/L (3.5-5.1)
[2017-07-25] MEDS: SODIUM CHLORIDE 0.9% FLUSH 10 ML FLUSH IVF PRN (08:39)
[2017-07-25] MEDS ORDERED: ASPIRIN 81 MG CHEW TAB PO SCH (09:00)
[2017-07-25] MEDS: CLOPIDOGREL 75 MG TAB PO SCH (09:24)
[2017-07-25] MEDS: CARVEDILOL 3.125 MG TAB PO SCH ×3 (09:24→21:00)
--- NOTE | 2017-07-25 09:25 | PD.CARD.PN ---
Subjective Subjective Remarks "I feel better" Objective Medications Current Medications Medications (Trade) Dose Ordered Sig/Roxanna Route Start Time Stop Time Status Last Admin (NS Flush) 2 ml UNSCH PRN IVF 07/24/17 15:45 07/25/17 08:39 (Tylenol) 325 mg Q4H PRN PO 07/24/17 17:30 07/24/17 23:33 (Morphine Inj) 2 mg Q30M PRN IV PUSH 07/24/17 17:30 07/25/17 08:39 (Plavix) 75 mg DAILY PO 07/25/17 09:00 (Atropine Inj) 0.5 mg UNSCH PRN IV PUSH 07/24/17 17:30 (Zofran Inj) 4 mg Q4H PRN IV PUSH 07/24/17 17:30 (Coreg) 3.125 mg BID PO 07/24/17 21:00 07/24/17 21:17 (Lipitor) 10 mg HS PO 07/24/17 21:00 07/24/17 21:17 (Aspirin Chew) 81 mg DAILY PO 07/25/17 09:00 (Duoneb Neb) 1 ampule Q4HR NEB NEB 07/24/17 20:00 07/25/17 00:34 Nitroglycerin/ Dextrose 250 ml @ 1.5 mls/hr TITRATE PRN IV 07/24/17 19:30 07/24/17 19:57 Vital Signs / I&O Vital Signs Date Time Temp Pulse Resp B/P (MAP) Pulse Ox O2 Delivery O2 Flow Rate FiO2 07/25/17 08:55 18 07/25/17 08:00 101 07/25/17 07:00 97.3 118 22 150/95 (113) 94 07/25/17 07:00 118 150/95 07/25/17 07:00 90 07/25/17 06:00 96 07/25/17 05:00 98 07/25/17 04:00 96 07/25/17 03:00 98.2 97 22 143/91 (108) 97 07/25/17 03:00 99 07/25/17 02:00 92 07/25/17 01:00 92 07/25/17 00:00 100 07/24/17 23:00 98.2 98 22 154/96 (115) 98 07/24/17 23:00 93 07/24/17 22:00 94 07/24/17 21:00 104 07/24/17 20:00 97.6 107 22 155/98 (117) 98 07/24/17 20:00 108 07/24/17 19:57 107 153/98 07/24/17 19:20 98 Nasal Cannula 4.00 07/24/17 19:00 108 07/24/17 18:00 98.3 85 16 146/91 (109) 99 07/24/17 16:55 110 160/104 07/24/17 16:50 120 204/116 07/24/17 16:45 112 220/114 07/24/17 16:37 105 208/105 07/24/17 16:15 07/24/17 15:42 101 25 100 Nasal Cannula 2.00 07/24/17 15:42 100 Nasal Cannula 2.00 07/24/17 15:42 100 Nasal Cannula 2.00 07/24/17 15:42 97.7 102 25 209/114 (145) 100 Nasal Cannula 2.00 07/24/17 15:37 97.7 108 25 201/106 (137) 100 I/O 07/24/17 07/24/17 07/24/17 07/25/17 07/25/17 07/25/17 06:59 14:59 22:59 06:59 14:59 22:59 Intake Total 1440 ml Output Total 1750 ml Balance -310 ml Intake Oral 1440 ml Output Urine Total 1750 ml Physical Exam GENERAL: Well-nourished, well-developed patient. SKIN: Warm and dry. HEAD: Normocephalic. EYES: No scleral icterus. No injection or drainage. NECK: Supple, trachea midline. No JVD or lymphadenopathy. CARDIOVASCULAR: Regular rate and rhythm without murmurs, gallops, or rubs. RESPIRATORY: Breath sounds equal bilaterally. No accessory muscle use. GASTROINTESTINAL: Abdomen soft, non-tender, nondistended. EXTREMITIES: No cyanosis, or edema. NEUROLOGICAL: Awake, alert, and oriented x 3. Non-focal. Laboratory Laboratory Tests Test 07/24/17 15:38 07/25/17 05:20 White Blood Count 10.1 TH/MM3 11.0 TH/MM3 Red Blood Count 4.92 MIL/MM3 4.45 MIL/MM3 Hemoglobin 14.0 GM/DL 12.8 GM/DL Bedside Hemoglobin 14.3 G/DL Hematocrit 42.1 % 37.8 % Bedside Hematocrit 42.0 % Mean Corpuscular Volume 85.5 FL 85.0 FL Mean Corpuscular Hemoglobin 28.5 PG 28.7 PG Mean Corpuscular Hemoglobin Concent 33.3 % 33.8 % Red Cell Distribution Width 14.6 % 14.5 % Platelet Count 314 TH/MM3 254 TH/MM3 Mean Platelet Volume 8.1 FL 8.3 FL Neutrophils (%) (Auto) 63.0 % 80.4 % Lymphocytes (%) (Auto) 25.4 % 12.6 % Monocytes (%) (Auto) 10.0 % 6.7 % Eosinophils (%) (Auto) 1.2 % 0.1 % Basophils (%) (Auto) 0.4 % 0.2 % Neutrophils # (Auto) 6.4 TH/MM3 8.8 TH/MM3 Lymphocytes # (Auto) 2.6 TH/MM3 1.4 TH/MM3 Monocytes # (Auto) 1.0 TH/MM3 0.7 TH/MM3 Eosinophils # (Auto) 0.1 TH/MM3 0.0 TH/MM3 Basophils # (Auto) 0.0 TH/MM3 0.0 TH/MM3 CBC Comment DIFF FINAL DIFF FINAL Differential Comment Prothrombin Time 10.8 SEC Prothromb Time International Ratio 1.0 RATIO Activated Partial Thromboplast Time 25.9 SEC Bedside Sodium 140 MMOL/L Bedside Potassium 3.8 MMOL/L Bedside Chloride 104 MMOL/L Bedside Blood Urea Nitrogen 29 MG/DL Bedside Creatinine 1.4 MG/DL Bedside Glucose 128 MG/DL Calcium Level 9.0 MG/DL 8.1 MG/DL Magnesium Level 2.3 MG/DL Total Creatine Kinase 128 U/L Creatine Kinase MB 3.5 NG/ML Troponin I 5.18 NG/ML B-Type Natriuretic Peptide 285 PG/ML Blood Urea Nitrogen 23 MG/DL Creatinine 1.17 MG/DL Random Glucose 113 MG/DL Sodium Level 137 MEQ/L Potassium Level 3.2 MEQ/L Chloride Level 101 MEQ/L Carbon Dioxide Level 28.3 MEQ/L Anion Gap 8 MEQ/L Estimat Glomerular Filtration Rate 62 ML/MIN Triglycerides Level 124 MG/DL Cholesterol Level 159 MG/DL LDL Cholesterol 106 MG/DL HDL Cholesterol 28.2 MG/DL Cholesterol/HDL Ratio 5.63 RATIO Imaging Last Impressions Chest X-Ray 07/24/17 2490 Signed Impressions: Service Date/Time: Monday, July 24, 2017 16:04 - CONCLUSION: Slight cardiomegaly. Beatriz Caceres MD Assessment and Plan Problem List: (1) STEMI (ST elevation myocardial infarction) ICD Codes: I21.3 - ST elevation (STEMI) myocardial infarction of unspecified site Status: Acute Plan: Acute Stent Thrombosis DAPT noncompliance Recommendations 1. D/C nitro drip 2. Lasix 40mg IV BID 3. DAPT ASA and Plavix 4. Cont Coreg 5. Start ACEi and IMDUR 6. Increase statin 7. 2Decho (2) CAD (coronary artery disease) ICD Codes: I25.10 - Atherosclerotic heart disease of [place] coronary artery without angina pectoris (3) Tobacco abuse ICD Codes: Z72.0 - Tobacco use Problem Qualifiers (1) STEMI (ST elevation myocardial infarction): Qualified Codes: I21.3 - ST elevation (STEMI) myocardial infarction of unspecified site Pedro Trejo MD Jul 25, 2017 09:25
--- NOTE | 2017-07-25 09:44 | HHI.HP ---
[facility] Service [place] [facility] Primary Care Physician Unknown Admission Diagnosis STEMI Diagnoses: (1) Noncompliance Diagnosis: Principal (2) Pain, chronic Diagnosis: Secondary (3) Tobacco abuse Diagnosis: Secondary (4) CAD (coronary artery disease) Diagnosis: Principal (5) GI bleed due to NSAIDs Diagnosis: Secondary (6) STEMI (ST elevation myocardial infarction) Diagnosis: Principal (7) Hypertension Diagnosis: Principal (8) Hyperlipidemia Diagnosis: Principal (9) COPD (chronic obstructive pulmonary disease) Diagnosis: Secondary Chief Complaint: Chest pain Travel History International Travel<30 Days: No Contact w/Intl Traveler <30 Da: No Traveled to Known Affected Are: No History of Present Illness The patient is 66 years old. He arrives with retrosternal chest pain which started at rest about 30 minutes prior to ER arrival. He states the pain is severe. There is no radiation. The patient was here and left AGAINST MEDICAL ADVICE 3 days ago after he underwent coronary catheterization revealing "long hazy" LAD occlusion which was stented successfully. Patient states he filled his Plavix prescription yesterday. Associated symptoms include diaphoresis and shortness of breath. Patient received after EMS gave aspirin. AFTAB ARDON DATE 07/24/17 DATE OF 1950 PROCEDURE PERFORMED 1. Left heart catheterization. 2. Selective right and left coronary angiography. 3. Successful POBA to acute in-stent thrombosis of proximal LAD. APPROACH Left transfemoral. SEDATION RN sedation. DESCRIPTION OF PROCEDURE Consent signed. The patient was brought into the cardiac catheterization lab in a fasting state. The left groin was prepped and draped in sterile fashion using 1% lidocaine for local anesthesia, micropuncture kit a 6-[place] sheath was inserted into the left common femoral artery. Left common femoral artery angiography was performed to confirm position of the sheath. Then selective right and left coronary angiography was performed with a JR-4 diagnostic catheters and EBU 3.56 [place] guide. Angiography was taken in multiple views. We identified an acute stent thrombosis of the proximal LAD for which the LAD was wired with a run-through wire. This was followed by insertion of a 3-0 x 12 noncompliant balloon which was inflated 2 hemispheres and a noncompliant 3.5 12 also inflated to high pressures. The patient has successful reperfusion of the vessel with BRAD III flow. He went into reperfusion rhythm. He remained stable with a blood pressure and heart rate and improvement of symptoms. The patient tolerated the procedure well without complications. Estimated blood loss less than 30 cc. Total contrast used 70 cc. The right groin access site was closed with a Perclose device. RESULTS LEFT VENTRICLE The left ventricular pressure was 176/31 with an LVEDP of 36. The aortic pressure was 175/116 with a mean of 144. There was no gradient upon pullback from the left ventricle to aorta. ANGIOGRAPHY 1. Right coronary artery. The right coronary artery is a dominant vessel giving off the PDA. It has no significant obstructions and is unchanged from previous cath. The PDA is wide open and patent and the PLV branch has a 30% lesion proximally. 2. Left main: The left main has 40% lesion distally, unchanged from previous cath. 3. The LAD is 100% occluded right at the stent insertion. 4. The left circumflex artery is composed of two main OM vessels and an AV groove circ. These vessels are patent with BRAD III flow and none significant obstructive coronary artery disease. CONCLUSION 1. Successful POBA to proximal LAD in the setting of acute stent thrombosis due to noncompliant with DAPT. 2. Elevated LVEDP. RECOMMENDATIONS Admit to [facility] for post cath care. The patient will continue on Angiomax for the next 4 hours. He was started on an loading dose of Plavix and given aspirin and continue aggressive medical management for secondary prevention of CAD including therapeutic lifestyle changes such as smoking cessation, exercise and diet. 2Decho. Patient needs to stop smoking and take all his medications as directed Otherwise his stent will close again Review of Systems Constitutional: DENIES: Diaphoretic episodes, Fatigue, Fever, Weight gain, Weight loss, Chills, Dizziness Endocrine: DENIES: Heat/cold intolerance, Polydipsia, Polyuria, Polyphagia Eyes: DENIES: Blurred vision, Diplopia, Eye inflammation, Eye pain Ears, nose, mouth, throat: DENIES: Tinnitus, Hearing loss, Vertigo Respiratory: COMPLAINS OF: Cough, Sputum production, Shortness of breath, DENIES: Apneas, Snoring, Wheezing, Hemoptysis Cardiovascular: COMPLAINS OF: Chest pain, DENIES: Palpitations, Syncope, Dyspnea on Exertion, PND, Lower Extremity Edema Gastrointestinal: DENIES: Abdominal pain, Black stools, Bloody stools Genitourinary: DENIES: Sexual dysfunction, Urinary frequency Musculoskeletal: DENIES: Joint pain, Muscle aches, Stiffness Integumentary: DENIES: Abnormal pigmentation, Nail changes Hematologic/lymphatic: DENIES: Bruising, Lymphadenopathy Immunologic/allergic: DENIES: Eczema, Urticaria Neurologic: DENIES: Abnormal gait, Headache, Localized weakness, Paresthesias, Seizures, Speech Problems, Tremor, Poor Balance Psychiatric: COMPLAINS OF: Anxiety, Mood changes, Depression, Agitation, DENIES : Confusion, Hallucinations Past Family Social History Past Medical History Coronary artery disease with history of stent In-stent restenosis this admission [place] Tobacco abuse COPD Hypertension Hyperlipidemia Noncompliance Past Surgical History 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 Reported Medications Reported Meds & Active Scripts Active Pepcid (Famotidine) 40 Mg Tab 40 Mg PO BID Ramipril 5 Mg Cap 5 Mg PO BID Pantoprazole (Pantoprazole Sodium) 40 Mg Tab 40 Mg PO Q12HR Aspirin Low Strength (Aspirin) 81 Mg Chew 162 Mg PO DAILY Coreg (Carvedilol) 3.125 Mg Tab 3.125 Mg PO BID Atorvastatin (Atorvastatin Calcium) 40 Mg Tab 40 Mg PO HS Plavix (Clopidogrel Bisulfate) 75 Mg Tab 75 Mg PO DAILY Allergies: Coded Allergies: codeine (Verified Allergy, Severe, 07/20/17) Active Ordered Medications Current Medications Sodium Chloride 1,000 ml @ 0 mls/hr Q0M ONCE IV ; Start 07/24/17 at 15:40; Stop 07/24/17 at 15:42; Status DC Sodium Chloride (NS Flush) 2 ml UNSCH PRN IVF FLUSH AFTER USING IV ACCESS Last administered on 07/25/17 08:39; Start 07/24/17 at 15:45 Aspirin (Aspirin Chew) 324 mg NOW STAT PO Last administered on 07/24/17 16:36 ; Start 07/24/17 at 15:40; Stop 07/24/17 at 15:42; Status DC Nitroglycerin (Nitrostat Sl) 0.4 mg NOW STAT SL ; Start 07/24/17 at 15:40; Stop 07/24/17 at 15:42; Status DC Nitroglycerin/ Dextrose 250 ml @ 3 mls/hr TITRATE PRN IV for angina or ST elevation Last administered on 07/24/17 16:37; Start 07/24/17 at 15:45; Stop 07/24 at 19:24; Status DC Morphine Sulfate (Morphine Inj) 4 mg ONCE ONCE IV PUSH Last administered on 16:36; Start 07/24/17 at 16:00; Stop 07/24/17 at 16:01; Status DC Heparin Sodium (Porcine) (Heparin Inj) 6,000 units NOW STAT IV Last administered on 07/24/17 16:36; Start 07/24/17 at 15:57; Stop 07/24/17 at 15:58; Status DC Heparin Sodium/ Sodium Chloride 1,000 ml @ As Directed STK-MED ONCE .ROUTE Last administered on 07/24/17 16:08; Start 07/24/17 at 16:08; Stop 07/24/17 at 16: 09; Status DC Midazolam HCl (Versed Inj) 2 mg STK-MED ONCE .ROUTE Last administered on 16:24; Start 07/24/17 at 16:09; Stop 07/24/17 at 16:10; Status DC Fentanyl Citrate (fentaNYL INJ) 100 mcg STK-MED ONCE .ROUTE Last administered on 07/24/17 16:25; Start 07/24/17 at 16:09; Stop 07/24/17 at 16:10; Status DC Heparin Sodium (Porcine) (Heparin Inj) 10,000 units STK-MED ONCE .ROUTE ; Start 07/24/17 at 16:09; Stop 07/24/17 at 16:10; Status DC Nitroglycerin 5 ml @ As Directed STK-MED ONCE .ROUTE ; Start 07/24/17 at 16:09; Stop 07/24/17 at 16:10; Status DC Morphine Sulfate (Morphine Inj) 8 mg STK-MED ONCE .ROUTE Last administered on 16:29; Start 07/24/17 at 16:28; Stop 07/24/17 at 16:29; Status DC Midazolam HCl (Versed Inj) 5 mg STK-MED ONCE .ROUTE Last administered on 16:30; Start 07/24/17 at 16:28; Stop 07/24/17 at 16:29; Status DC Bivalirudin (Angiomax Inj) 250 mg STK-MED ONCE .ROUTE Last administered on 16:37; Start 07/24/17 at 16:35; Stop 07/24/17 at 16:36; Status DC Sterile Water (Sterile Water For Injection) 10 ml STK-MED ONCE .ROUTE Last administered on 07/24/17 16:35; Start 07/24/17 at 16:35; Stop 07/24/17 at 16:36; Status DC Hydromorphone HCl (Dilaudid Pf Inj) 2 mg STK-MED ONCE .ROUTE Last administered on 07/24/17 16:47; Start 07/24/17 at 16:46; Stop 07/24/17 at 16:47; Status DC Clopidogrel Bisulfate (Plavix) 300 mg STK-MED ONCE .ROUTE Last administered on 07/24/17 17:00; Start 07/24/17 at 16:54; Stop 07/24/17 at 16:55; Status DC Bivalirudin (Angiomax Inj) 250 mg STK-MED ONCE .ROUTE ; Start 07/24/17 at 16:54; Stop 07/24/17 at 16:55; Status DC Labetalol HCl (Trandate Inj) 100 mg STK-MED ONCE .ROUTE Last administered on 17:04; Start 07/24/17 at 17:04; Stop 07/24/17 at 17:05; Status DC Sodium Chloride 1,000 ml @ 125 mls/hr Q8H IV ; Start 07/24/17 at 17:16; Stop 07/24/17 at 21:15; Status DC Acetaminophen (Tylenol) 325 mg Q4H PRN PO PAIN SCALE 1 TO 2 Last administered on 07/24/17 23:33; Start 07/24/17 at 17:30 Morphine Sulfate (Morphine Inj) 2 mg Q30M PRN IV PUSH BREAKTHROUGH PAIN Last administered on 07/25/17 08:39; Start 07/24/17 at 17:30 Aspirin (Aspirin Chew) 81 mg DAILY PO ; Start 07/24/17 at 18:00; Stop 07/24/17 at 18:49; Status DC Clopidogrel Bisulfate (Plavix) 600 mg ONCE ONCE PO ; Start 07/24/17 at 17:30; Stop 07/24/17 at 17:34; Status DC Clopidogrel Bisulfate (Plavix) 75 mg DAILY PO Last administered on 07/25/17 09: 24; Start 07/25/17 at 09:00 Bivalirudin 250 mg/Sodium Chloride 50 ml @ 0 mls/hr Q0M IV Last administered on 07/24/17 19:50; Start 07/24/17 at 17:16; Stop 07/24/17 at 21:15; Status DC Miscellaneous Information 1 ONCE ONCE XX ; Start 07/24/17 at 17:30; Stop at 17:35; Status DC Atropine Sulfate (Atropine Inj) 0.5 mg UNSCH PRN IV PUSH VAGAL REPONSE; Start 07/24/17 at 17:30 Ondansetron HCl (Zofran Inj) 4 mg Q4H PRN IV PUSH NAUSEA; Start 07/24/17 at 17: 30 Carvedilol (Coreg) 3.125 mg BID PO Last administered on 07/25/17 09:24; Start 07/24/17 at 21:00 Atorvastatin Calcium (Lipitor) 10 mg HS PO Last administered on 07/24/17 21:17 ; Start 07/24/17 at 21:00 Aspirin (Aspirin Chew) 81 mg DAILY PO Last administered on 07/25/17 09:24; Start 07/25/17 at 09:00 Albuterol/ Ipratropium (Duoneb Neb) 1 ampule Q4HR NEB NEB Last administered on 07/25/17 00:34; Start 07/24/17 at 20:00 Furosemide (Lasix Inj) 40 mg NOW ONCE IV PUSH Last administered on 07/24/17 19 :41; Start 07/24/17 at 19:30; Stop 07/24/17 at 19:31; Status DC Nitroglycerin/ Dextrose 250 ml @ 1.5 mls/hr TITRATE PRN IV Blood Pressure Management Last administered on 07/24/17 19:57; Start 07/24/17 at 19:30 Family History Tobacco abuse suspected coronary disease hypertension Social History Tobacco abuse smokes daily recommend smoking cessation permanently Denies alcohol abuse Takes chronic pain medications Physical Exam Vital Signs Vital Signs Date Time Temp Pulse Resp B/P (MAP) Pulse Ox O2 Delivery O2 Flow Rate FiO2 07/25/17 08:55 18 9/9/17 08:00 101 07/25/17 07:00 97.3 118 22 150/95 (113) 94 07/25/17 07:00 118 150/95 07/25/17 07:00 90 07/25/17 06:00 96 07/25/17 05:00 98 07/25/17 04:00 96 07/25/17 03:00 98.2 97 22 143/91 (108) 97 07/25/17 03:00 99 07/25/17 02:00 92 07/25/17 01:00 92 07/25/17 00:00 100 07/24/17 23:00 98.2 98 22 154/96 (115) 98 07/24/17 23:00 93 07/24/17 22:00 94 07/24/17 21:00 104 07/24/17 20:00 97.6 107 22 155/98 (117) 98 07/24/17 20:00 108 07/24/17 19:57 107 153/98 07/24/17 19:20 98 Nasal Cannula 4.00 07/24/17 19:00 108 07/24/17 18:00 98.3 85 16 146/91 (109) 99 07/24/17 16:55 110 160/104 07/24/17 16:50 120 204/116 07/24/17 16:45 112 220/114 07/24/17 16:37 105 208/105 07/24/17 16:15 07/24/17 15:42 101 25 100 Nasal Cannula 2.00 07/24/17 15:42 100 Nasal Cannula 2.00 07/24/17 15:42 100 Nasal Cannula 2.00 07/24/17 15:42 97.7 102 25 209/114 (145) 100 Nasal Cannula 2.00 07/24/17 15:37 97.7 108 25 201/106 (137) 100 Physical Exam GENERAL: This is a well-nourished, well-developed patient, in no apparent distress. SKIN: No rashes, ecchymoses or lesions. Cool and dry. HEAD: Atraumatic. Normocephalic. No temporal or scalp tenderness. EYES: Pupils equal round and reactive. Extraocular motions intact. No scleral icterus. No injection or drainage. ENT: Nose without bleeding, purulent drainage or septal hematoma. Throat without erythema, tonsillar hypertrophy or exudate. Uvula midline. Airway patent. NECK: Trachea midline. No JVD or lymphadenopathy. Supple, nontender, no meningeal signs. CARDIOVASCULAR: Regular rate and rhythm without murmurs, gallops, or rubs. S1- S2 no S3 or S4 no heave or thrill or rub or gallop RESPIRATORY: Few rhonchi bilaterally. Breath sounds equal bilaterally. No wheezes, rales, or rhonchi. GASTROINTESTINAL: Abdomen soft, non-tender, nondistended. No hepato-splenomegaly , or palpable masses. No guarding. MUSCULOSKELETAL: Extremities without clubbing, cyanosis, or edema. No joint tenderness, effusion, or edema noted. No calf tenderness. Negative Homans sign bilaterally. 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 Cranial nerves II through XII intact. Motor and sensory grossly within normal limits. Five out of 5 muscle strength in all muscle groups. Normal speech. Insight and judgment are abnormal mood and behavior are somewhat appropriate Laboratory Laboratory Tests Test 07/24/17 15:38 07/25/17 05:20 White Blood Count 10.1 11.0 Red Blood Count 4.92 4.45 Hemoglobin 14.0 12.8 Bedside Hemoglobin 14.3 Hematocrit 42.1 37.8 Bedside Hematocrit 42.0 Mean Corpuscular Volume 85.5 85.0 Mean Corpuscular Hemoglobin 28.5 28.7 Mean Corpuscular Hemoglobin Concent 33.3 33.8 Red Cell Distribution Width 14.6 14.5 Platelet Count 314 254 Mean Platelet Volume 8.1 8.3 Neutrophils (%) (Auto) 63.0 80.4 Lymphocytes (%) (Auto) 25.4 12.6 Monocytes (%) (Auto) 10.0 6.7 Eosinophils (%) (Auto) 1.2 0.1 Basophils (%) (Auto) 0.4 0.2 Neutrophils # (Auto) 6.4 8.8 Lymphocytes # (Auto) 2.6 1.4 Monocytes # (Auto) 1.0 0.7 Eosinophils # (Auto) 0.1 0.0 Basophils # (Auto) 0.0 0.0 CBC Comment DIFF FINAL DIFF FINAL Differential Comment Prothrombin Time 10.8 Prothromb Time International Ratio 1.0 Activated Partial Thromboplast Time 25.9 Bedside Sodium 140 Bedside Potassium 3.8 Bedside Chloride 104 Bedside Blood Urea Nitrogen 29 Bedside Creatinine 1.4 Bedside Glucose 128 Calcium Level 9.0 8.1 Magnesium Level 2.3 Total Creatine Kinase 128 Creatine Kinase MB 3.5 Troponin I 5.18 B-Type Natriuretic Peptide 285 Blood Urea Nitrogen 23 Creatinine 1.17 Random Glucose 113 Sodium Level 137 Potassium Level 3.2 Chloride Level 101 Carbon Dioxide Level 28.3 Anion Gap 8 Estimat Glomerular Filtration Rate 62 Triglycerides Level 124 Cholesterol Level 159 LDL Cholesterol 106 HDL Cholesterol 28.2 Cholesterol/HDL Ratio 5.63 Result Diagram: 07/25/17 0520 07/25/17 0520 Imaging Last Impressions Chest X-Ray 07/24/17 1540 Signed Impressions: Service Date/Time: Monday, July 24, 2017 16:04 - CONCLUSION: Slight cardiomegaly. MD Tex Alford VTE Risk Assessment Tex VTE Risk Assessment: Mod/High Risk (score >= 2) Caprini Risk Assessment Model Point Value = 1 Point Value = 2 Point Value = 3 Point Value = 5 Age 41-60 Minor surgery BMI > 25 kg/m2 Swollen legs Varicose veins or History of unexplained or recurrent spontaneous Oral contraceptives or hormone replacement Sepsis (< 1 month) Serious lung disease, including pneumonia (< 1 month) Abnormal pulmonary function Acute myocardial infarction Congestive heart failure (< 1 month) History of inflammatory bowel disease Medical patient at bed rest Age 61-74 Arthroscopic surgery Major open surgery (> 45 min) Laparoscopic surgery (> 45 min) Malignancy Confined to bed (> 72 hours) Immobilizing plaster cast Central venous access Age >= 75 History of VTE Family history of VTE Factor V Leiden Prothrombin [id number] Lupus anticoagulant Anticardiolipin antibodies Elevated serum homocysteine Heparin-induced thrombocytopenia Other congenital or acquired thrombophilia Stroke (< 1 month) Elective arthroplasty Hip, pelvis, or leg fracture Acute spinal cord injury (< 1 month) Prophylaxis Regimen Total Risk Factor Score Risk Level Prophylaxis Regimen 0-1 Low Early ambulation 2 Moderate Order ONE of the following: *Sequential Compression Device (SCD) *Heparin 5000 units SQ BID 3-4 Higher Order ONE of the following medications: *Heparin 5000 units SQ TID *Enoxaparin/Lovenox 40 mg SQ daily (WT < 150 kg, CrCl > 30 mL/min) *Enoxaparin/Lovenox 30 mg SQ daily (WT < 150 kg, CrCl > 10-29 mL/min) *Enoxaparin/Lovenox 30 mg SQ BID (WT < 150 kg, CrCl > 30 mL/min) AND/OR *Sequential Compression Device (SCD) 5 or more Highest Order ONE of the following medications: *Heparin 5000 units SQ TID (Preferred with Epidurals) *Enoxaparin/Lovenox 40 mg SQ daily (WT < 150 kg, CrCl > 30 mL/min) *Enoxaparin/Lovenox 30 mg SQ daily (WT < 150 kg, CrCl > 10-29 mL/min) *Enoxaparin/Lovenox 30 mg SQ BID (WT < 150 kg, CrCl > 30 mL/min) AND *Sequential Compression Device (SCD) Assessment and Plan Problem List: (1) Hypertension ICD Code: I10 - Essential (primary) hypertension (2) Hyperlipidemia ICD Code: E78.5 - Hyperlipidemia, unspecified (3) COPD (chronic obstructive pulmonary disease) ICD Code: J44.9 - Chronic obstructive pulmonary disease, unspecified (4) GI bleed due to NSAIDs ICD Code: K92.2 - Gastrointestinal hemorrhage, unspecified; T39.395A - Adverse effect of other nonsteroidal anti-inflammatory drugs [NSAID], initial encounter (5) Noncompliance ICD Code: Z91.19 - Patient's noncompliance with other medical treatment and regimen (6) Pain, chronic ICD Code: G89.29 - Other chronic pain (7) Tobacco abuse ICD Code: Z72.0 - Tobacco use (8) CAD (coronary artery disease) ICD Code: I25.10 - Atherosclerotic heart disease of [place] coronary artery without angina pectoris (9) STEMI (ST elevation myocardial infarction) ICD Code: I21.3 - ST elevation (STEMI) myocardial infarction of unspecified site Status: Acute (10) Hypokalemia ICD Code: E87.6 - Hypokalemia Assessment and Plan Known coronary artery disease with in-stent rethrombosis status post balloon angioplasty of the stents Tobacco abuse recommend smoking cessation Chronic back pain chronic pain continue pain medications Hypertension home medications hyperlipidemia home medications GERD- PPI H2 MICA HYPOKALEMIA REPLACE AM LABS NONCOMPLIANCE Cardiac diet and activity as tolerated Physical therapy and occupational therapy to eval and treat A.m. labs case management regarding discharge planning Code Status Full code Discussed Condition With RN and patient Physician Certification 2 Midnight Certification Type: Admission for Inpatient Services Order for Inpatient Services The services are ordered in accordance with Medicare regulations or non- Medicare payer requirements, as applicable. In the case of services not specified as inpatient-only, they are appropriately provided as inpatient services in accordance with the 2-midnight benchmark. Estimated LOS (days): 3 3 days is the estimated time the patient will need to remain in the hospital, assuming treatment plan goals are met and no additional complications. Post-Hospital Plan: Home Problem Qualifiers (1) STEMI (ST elevation myocardial infarction): Qualified Codes: I21.3 - ST elevation (STEMI) myocardial infarction of unspecified site Greg Berrios DO Jul 25, 2017 09:44
[2017-07-25] MEDS ORDERED: RESP: ALBUTEROL 2.5 MG/IPRATROPIUM 0.5 MG NEB (PRN) NEB (09:45)
[2017-07-25] MEDS ORDERED: NICOTINE 14 MG/24 HR PATCH T-DERMAL ONE (09:45)
[2017-07-25] MEDS ORDERED: POTASSIUM CHLORIDE 10 MEQ CONTROLLED RELEASE TAB PO ONE (09:45)
[2017-07-25] MEDS: LISINOPRIL 20 MG TAB PO SCH (10:52)
[2017-07-25] MEDS: guaiFENesin E.R. 600 MG TAB PO SCH ×2 (10:52→20:46)
--- NOTE | 2017-07-25 12:00 | ECHRPT ---
Indication: Coronary Atherosclerosis CONCLUSIONS The left ventricular systolic function is severely reduced with an estimated ejection fraction in th e range of 25-30%. Moderate concentric left ventricular hypertrophy. Hypokinetic mid-anterior septal wall motion. Hypokinetic apical-septal wall motion. trivial pericardial effustion BP: 150 / 95 HR: 113 Rhythm: Sinus MEASUREMENTS (Male / Female) Normal Values Technical Quality:Fair 2D ECHO LVOT Diameter 1.9 cm LV Ejection Fraction MOD 4C 29.9 % LV Cardiac Index MOD 4C 1763.0 cm/minm LV Ejection Fraction 4C AL 31.2 % LV Cardiac Index 4C AL 1933.0 cm/minm M-MODE LV Diastolic Diameter MM 6.1 cm 4.2 - 5.9 / 3.9 - 5.3 cm LV Systolic Diameter MM 5.3 cm LV Ejection Fraction MM Teich 27.7 % LV Cardiac Index MM Teich 2650.3 cm/minm IVS Diastolic Thickness MM 1.5 cm 0.6 - 1.0 / 0.6 - 0.9 cm LVPW Diastolic Thickness MM 1.5 cm 0.6 - 1.0 / 0.6 - 0.9 cm LV Relative Wall Thickness MM 0.5 0.24 - 0.42 / 0.22 - 0.42 LV Mass Index MM 203.9 g/m 49 - 115 / 43 - 95 g/m Aortic Root Diameter MM 3.3 cm LA Systolic Diameter MM 4.0 cm LA Ao Ratio MM 1.2 AV Cusp Separation MM 2.1 cm DOPPLER AV Peak Velocity 128.0 cm/s AV Peak Gradient 6.6 mmHg LVOT Peak Velocity 77.0 cm/s LVOT Peak Gradient 2.4 mmHg AV Area Cont Eq pk 1.7 cm MV Area PHT 5.2 cm Mitral E Point Velocity 88.4 cm/s Mitral A Point Velocity 74.5 cm/s Mitral E to A Ratio 1.2 LV E' Lateral Velocity 6.2 cm/s Mitral E to LV E' Lateral Ratio 14.2 LV E' Septal Velocity 4.5 cm/s Mitral E to LV E' Septal Ratio 19.7 TR Peak Velocity 156.0 cm/s TR Peak Gradient 9.7 mmHg PV Peak Velocity 86.9 cm/s PV Peak Gradient 3.0 mmHg FINDINGS LEFT VENTRICLE The left ventricular systolic function is severely reduced with an estimated ejection fraction in th e range of 25-30%. Moderate concentric left ventricular hypertrophy. Hypokinetic mid-anterior septal wall motion. Hypokinetic apical-septal wall motion. RIGHT VENTRICLE Normal right ventricular size and systolic function. LEFT ATRIUM The left atrial size is normal. RIGHT ATRIUM The right atrial size is normal. ATRIAL SEPTUM Normal atrial septal thickness without atrial level shunting by limited color doppler interrogation. AORTA The aortic root and proximal ascending aorta are normal in size on limited imaging. MITRAL VALVE Structurally normal mitral valve. No mitral valve stenosis or regurgitation. AORTIC VALVE Trileaflet aortic valve. No aortic valve stenosis or regurgitation. TRICUSPID VALVE There is trace tricuspid valve regurgitation. Normal estimated pulmonary pressures. PULMONARY VALVE The pulmonary valve is not well visualized. VESSELS The inferior vena cava is normal in size. PERICARDIUM trivial pericardial effustion Tripp Reeves MD (Electronically Signed) Final Date:25 July 2017 11:59
--- NOTE | 2017-07-25 13:56 | EKG ---
Date Performed: 07/24/2017 Time Performed: 15:32:53 PTAGE: 66 years EKG: SINUS TACHYCARDIA POSSIBLE LEFT ATRIAL ENLARGEMENT MARKED LEFT AXIS DEVIATION INTRAVENTRICU LAR CONDUCTION DELAY PROBABLE SEPTAL MYOCARDIAL INFARCTION MARKED ST ELEVATION, CONSIDER ANTEROLATERA L INJURY ACUTE [place] INTERPRETATION BASED ON A DEFAULT AGE OF 40 YEARS PREVIOUS TRACING 07/21/17 Since prior tracing, anterior myocardial infarction is new. Clin ical correlation is required. Inferior changes are slightly reciprocal to the anterior injury. DOCTOR: Tripp Reeves Interpretating Date/Time 07/25/2017 13:54:31
[2017-07-25] MEDS: FUROSEMIDE 40 MG/4 ML VIAL IV PUSH SCH (18:18)
[2017-07-25] MEDS: FAMOTIDINE 20 MG TAB PO SCH (20:45)
[2017-07-25] MEDS: PANTOPRAZOLE SOD 40 MG DELAYED RELEASE TAB PO SCH (20:46)
[2017-07-25] MEDS: RAMIPRIL 5 MG CAP PO SCH (20:46)
[2017-07-25] MEDS ORDERED: ATORVASTATIN 80 MG TAB PO SCH (21:00)
[2017-07-26] VITALS (11 sets, daily range): BP systolic 129–142; BP diastolic 79; PULSE 83–112; RESP 18–20; TEMP 97.9–99; O2SAT 94–95
[2017-07-26] MEDS: MORPHINE SULFATE 4 MG/ML INJ IV PUSH PRN ×3 (02:31→06:28)
[2017-07-26] MEDS: RESP: ALBUTEROL 2.5 MG/IPRATROPIUM 0.5 MG NEB (SCH) NEB ×2 (03:18→07:47)
[2017-07-26] MEDS ORDERED: ISOSORBIDE MONONITRATE 30 MG TAB PO SCH (07:00)
[2017-07-26 08:21] LABS: AUTOMATED NEUTROPHIL # 8.5 TH/MM3 (1.8-7.7); BASOPHIL % 0.3 % (0.0-2.0); EOSINOPHIL % 0.4 % (0.0-4.0); HEMATOCRIT 40.7 % (39.0-51.0); HEMO FLAGS DIFF FINAL; LYMPH % 18.6 % (9.0-44.0); LYMPHOCYTE # 2.3 TH/MM3 (1.0-4.8); MEAN CELL VOLUME 85.2 FL (80.0-100.0); MEAN CORPUSCULAR HEMOGLOBIN 28.8 PG (27.0-34.0); MEAN CORPUSCULAR HGB CONC 33.8 % (32.0-36.0); MONO % 11.6 % (0.0-8.0); NEUT % 69.1 % (16.0-70.0); PLATELET COUNT 294 TH/MM3 (150-450); RED BLOOD COUNT 4.78 MIL/MM3 (4.50-5.90); RED CELL DISTRIBUTION WIDTH 14.5 % (11.6-17.2); WHITE BLOOD COUNT 12.3 TH/MM3 (4.0-11.0)
[2017-07-26] MEDS: guaiFENesin E.R. 600 MG TAB PO SCH (08:45)
[2017-07-26] MEDS: SODIUM CHLORIDE 0.9% FLUSH 10 ML FLUSH IVF PRN (08:45)
[2017-07-26] MEDS: CLOPIDOGREL 75 MG TAB PO SCH (08:45)
[2017-07-26] MEDS: PANTOPRAZOLE SOD 40 MG DELAYED RELEASE TAB PO SCH (08:45)
[2017-07-26] MEDS: LISINOPRIL 20 MG TAB PO SCH (08:46)
[2017-07-26] MEDS: FAMOTIDINE 20 MG TAB PO SCH (08:46)
[2017-07-26] MEDS: CARVEDILOL 3.125 MG TAB PO SCH (08:46)
[2017-07-26] MEDS: RAMIPRIL 5 MG CAP PO SCH (08:46)
[2017-07-26] MEDS: FUROSEMIDE 40 MG/4 ML VIAL IV PUSH SCH (08:48)
[2017-07-26 09:00] LABS: ALKALINE PHOSPHATASE 92 U/L (45-117); ALT (GPT) 76 U/L (12-78); ANION GAP 8 MEQ/L (5-15); AST (GOT) 243 U/L (15-37); BICARBONATE 27.5 MEQ/L (21.0-32.0); BLOOD UREA NITROGEN 25 MG/DL (7-18); CHLORIDE 101 MEQ/L (98-107); FREE T4 1.28 NG/DL (0.76-1.46); GLOMERULAR FILTRATION RATE 49 ML/MIN (>89); MAGNESIUM 2.2 MG/DL (1.5-2.5); POTASSIUM 3.3 MEQ/L (3.5-5.1); SODIUM (NA) 136 MEQ/L (136-145); TOTAL BILIRUBIN ADULT 1.1 MG/DL (0.2-1.0)
[2017-07-26] MEDS ORDERED: ASPIRIN 81 MG CHEW TAB PO SCH (09:00)
[2017-07-26] MEDS ORDERED: NICOTINE 14 MG/24 HR PATCH T-DERMAL SCH (09:00)
[2017-07-26] MEDS ORDERED: PNEUMOCOCCAL POLYVALENT INJ 25 MCG/0.5 ML SYR IM ONE (09:00)
[2017-07-26] MEDS ORDERED: REMOVE OLD PATCH T-DERMAL SCH (09:00)
[2017-07-26] MEDS ORDERED: POTASSIUM CHLORIDE 10 MEQ CONTROLLED RELEASE TAB PO ONE ×2 (09:30→11:30)
--- NOTE | 2017-07-26 09:46 | HHI.PR ---
Subjective Remarks The patient is 66 years old. He arrives with retrosternal chest pain which started at rest about 30 minutes prior to ER arrival. He states the pain is severe. There is no radiation. The patient was here and left AGAINST MEDICAL ADVICE 3 days ago after he underwent coronary catheterization revealing "long hazy" LAD occlusion which was stented successfully. Patient states he filled his Plavix prescription yesterday. Associated symptoms include diaphoresis and shortness of breath. Patient received after EMS gave aspirin. AFTAB ARDON DATE 07/24/17 DATE OF 1950 PROCEDURE PERFORMED 1. Left heart catheterization. 2. Selective right and left coronary angiography. 3. Successful POBA to acute in-stent thrombosis of proximal LAD. APPROACH Left transfemoral. SEDATION RN sedation. DESCRIPTION OF PROCEDURE Consent signed. The patient was brought into the cardiac catheterization lab in a fasting state. The left groin was prepped and draped in sterile fashion using 1% lidocaine for local anesthesia, micropuncture kit a 6-Ecuadorean sheath was inserted into the left common femoral artery. Left common femoral artery angiography was performed to confirm position of the sheath. Then selective right and left coronary angiography was performed with a JR-4 diagnostic catheters and EBU 3.56 Ecuadorean guide. Angiography was taken in multiple views. We identified an acute stent thrombosis of the proximal LAD for which the LAD was wired with a run-through wire. This was followed by insertion of a 3-0 x 12 noncompliant balloon which was inflated 2 hemispheres and a noncompliant 3.5 12 also inflated to high pressures. The patient has successful reperfusion of the vessel with BRAD III flow. He went into reperfusion rhythm. He remained stable with a blood pressure and heart rate and improvement of symptoms. The patient tolerated the procedure well without complications. Estimated blood loss less than 30 cc. Total contrast used 70 cc. The right groin access site was closed with a Perclose device. RESULTS LEFT VENTRICLE The left ventricular pressure was 176/31 with an LVEDP of 36. The aortic pressure was 175/116 with a mean of 144. There was no gradient upon pullback from the left ventricle to aorta. ANGIOGRAPHY 1. Right coronary artery. The right coronary artery is a dominant vessel giving off the PDA. It has no significant obstructions and is unchanged from previous cath. The PDA is wide open and patent and the PLV branch has a 30% lesion proximally. 2. Left main: The left main has 40% lesion distally, unchanged from previous cath. 3. The LAD is 100% occluded right at the stent insertion. 4. The left circumflex artery is composed of two main OM vessels and an AV groove circ. These vessels are patent with BRAD III flow and none significant obstructive coronary artery disease. CONCLUSION 1. Successful POBA to proximal LAD in the setting of acute stent thrombosis due to noncompliant with DAPT. 2. Elevated LVEDP. RECOMMENDATIONS Admit to [facility] for post cath care. The patient will continue on Angiomax for the next 4 hours. He was started on an loading dose of Plavix and given aspirin and continue aggressive medical management for secondary prevention of CAD including therapeutic lifestyle changes such as smoking cessation, exercise and diet. 2Decho. Patient needs to stop smoking and take all his medications as directed Otherwise his stent will close again 9-10 replace potassium by protocols not cleared by cardiology for dc patient states he may leave against medical advice Objective Vitals Vital Signs Date Time Temp Pulse Resp B/P (MAP) Pulse Ox O2 Delivery O2 Flow Rate FiO2 07/26/17 08:00 99 07/26/17 07:47 95 07/26/17 07:00 83 07/26/17 07:00 97.9 109 18 129/79 (96) 94 07/26/17 06:33 18 07/26/17 06:00 86 07/26/17 05:00 85 07/26/17 04:00 112 07/26/17 03:01 105 07/26/17 03:00 99.0 110 20 142/79 (100) 95 07/26/17 02:05 98 07/26/17 01:02 91 07/26/17 00:00 91 07/25/17 23:00 98 07/25/17 23:00 98.6 107 16 136/90 (105) 97 07/25/17 22:00 102 07/25/17 21:00 102 07/25/17 20:00 108 07/25/17 19:00 110 07/25/17 19:00 97.8 108 20 148/86 (106) 98 07/25/17 18:00 93 07/25/17 17:00 92 07/25/17 16:00 76 07/25/17 15:00 84 07/25/17 15:00 98.3 79 18 132/64 (86) 97 07/25/17 14:00 75 07/25/17 13:00 87 07/25/17 12:00 86 07/25/17 11:00 74 07/25/17 11:00 98.3 75 16 147/99 (115) 96 07/25/17 10:00 91 I/O 07/25/17 07/25/17 07/25/17 07/26/17 07/26/17 07/26/17 07:00 15:00 23:00 07:00 15:00 23:00 Intake Total 1440 ml 450 ml 480 ml Output Total 1750 ml 750 ml 200 ml Balance -310 ml -300 ml 280 ml Intake Oral 1440 ml 450 ml 480 ml Output Urine Total 1750 ml 750 ml 200 ml # Voids 1 # Bowel Movements 1 Result Diagram: 07/26/17 0750 07/26/17 0750 Other Results Laboratory Tests Test 07/24/17 15:38 07/25/17 05:20 07/26/17 07:50 White Blood Count 10.1 TH/MM3 11.0 TH/MM3 12.3 TH/MM3 Red Blood Count 4.92 MIL/MM3 4.45 MIL/MM3 4.78 MIL/MM3 Hemoglobin 14.0 GM/DL 12.8 GM/DL 13.8 GM/DL Bedside Hemoglobin 14.3 G/DL Hematocrit 42.1 % 37.8 % 40.7 % Bedside Hematocrit 42.0 % Mean Corpuscular Volume 85.5 FL 85.0 FL 85.2 FL Mean Corpuscular Hemoglobin 28.5 PG 28.7 PG 28.8 PG Mean Corpuscular Hemoglobin Concent 33.3 % 33.8 % 33.8 % Red Cell Distribution Width 14.6 % 14.5 % 14.5 % Platelet Count 314 TH/MM3 254 TH/MM3 294 TH/MM3 Mean Platelet Volume 8.1 FL 8.3 FL 8.4 FL Neutrophils (%) (Auto) 63.0 % 80.4 % 69.1 % Lymphocytes (%) (Auto) 25.4 % 12.6 % 18.6 % Monocytes (%) (Auto) 10.0 % 6.7 % 11.6 % Eosinophils (%) (Auto) 1.2 % 0.1 % 0.4 % Basophils (%) (Auto) 0.4 % 0.2 % 0.3 % Neutrophils # (Auto) 6.4 TH/MM3 8.8 TH/MM3 8.5 TH/MM3 Lymphocytes # (Auto) 2.6 TH/MM3 1.4 TH/MM3 2.3 TH/MM3 Monocytes # (Auto) 1.0 TH/MM3 0.7 TH/MM3 1.4 TH/MM3 Eosinophils # (Auto) 0.1 TH/MM3 0.0 TH/MM3 0.0 TH/MM3 Basophils # (Auto) 0.0 TH/MM3 0.0 TH/MM3 0.0 TH/MM3 CBC Comment DIFF FINAL DIFF FINAL DIFF FINAL Differential Comment Prothrombin Time 10.8 SEC Prothromb Time International Ratio 1.0 RATIO Activated Partial Thromboplast Time 25.9 SEC Bedside Sodium 140 MMOL/L Bedside Potassium 3.8 MMOL/L Bedside Chloride 104 MMOL/L Bedside Blood Urea Nitrogen 29 MG/DL Bedside Creatinine 1.4 MG/DL Bedside Glucose 128 MG/DL Calcium Level 9.0 MG/DL 8.1 MG/DL 9.1 MG/DL Magnesium Level 2.3 MG/DL 2.2 MG/DL Total Creatine Kinase 128 U/L Creatine Kinase MB 3.5 NG/ML Troponin I 5.18 NG/ML B-Type Natriuretic Peptide 285 PG/ML Blood Urea Nitrogen 23 MG/DL 25 MG/DL Creatinine 1.17 MG/DL 1.44 MG/DL Random Glucose 113 MG/DL 112 MG/DL Sodium Level 137 MEQ/L 136 MEQ/L Potassium Level 3.2 MEQ/L 3.3 MEQ/L Chloride Level 101 MEQ/L 101 MEQ/L Carbon Dioxide Level 28.3 MEQ/L 27.5 MEQ/L Anion Gap 8 MEQ/L 8 MEQ/L Estimat Glomerular Filtration Rate 62 ML/MIN 49 ML/MIN Triglycerides Level 124 MG/DL Cholesterol Level 159 MG/DL LDL Cholesterol 106 MG/DL HDL Cholesterol 28.2 MG/DL Cholesterol/HDL Ratio 5.63 RATIO Total Protein 7.9 GM/DL Albumin 3.7 GM/DL Phosphorus Level 3.6 MG/DL Alkaline Phosphatase 92 U/L Aspartate Amino Transf (AST/SGOT) 243 U/L Alanine Aminotransferase (ALT/SGPT) 76 U/L Total Bilirubin 1.1 MG/DL Free Thyroxine 1.28 NG/DL Thyroid Stimulating Hormone 3rd Gen 0.183 uIU/ML Imaging Last Impressions Chest X-Ray 07/24/17 1540 Signed Impressions: Service Date/Time: Monday, July 24, 2017 16:04 - CONCLUSION: Slight cardiomegaly. Beatriz Caceres MD Objective Remarks GENERAL: This is a well-nourished, well-developed patient, in no apparent distress. SKIN: No rashes, ecchymoses or lesions. Cool and dry. HEAD: Atraumatic. Normocephalic. No temporal or scalp tenderness. EYES: Pupils equal round and reactive. Extraocular motions intact. No scleral icterus. No injection or drainage. ENT: Nose without bleeding, purulent drainage or septal hematoma. Throat without erythema, tonsillar hypertrophy or exudate. Uvula midline. Airway patent. NECK: Trachea midline. No JVD or lymphadenopathy. Supple, nontender, no meningeal signs. CARDIOVASCULAR: Regular rate and rhythm without murmurs, gallops, or rubs. S1- S2 no S3 or S4 no heave or thrill or rub or gallop RESPIRATORY: Few rhonchi bilaterally. Breath sounds equal bilaterally. No wheezes, rales, or rhonchi. GASTROINTESTINAL: Abdomen soft, non-tender, nondistended. No hepato-splenomegaly , or palpable masses. No guarding. MUSCULOSKELETAL: Extremities without clubbing, cyanosis, or edema. No joint tenderness, effusion, or edema noted. No calf tenderness. Negative Homans sign bilaterally. 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 Cranial nerves II through XII intact. Motor and sensory grossly within normal limits. Five out of 5 muscle strength in all muscle groups. Normal speech. Insight and judgment are abnormal mood and behavior are somewhat appropriate Procedures AFTAB ARDON DATE 07/24/17 DATE OF 1950 PROCEDURE PERFORMED 1. Left heart catheterization. 2. Selective right and left coronary angiography. 3. Successful POBA to acute in-stent thrombosis of proximal LAD. APPROACH Left transfemoral. SEDATION RN sedation. DESCRIPTION OF PROCEDURE Consent signed. The patient was brought into the cardiac catheterization lab in a fasting state. The left groin was prepped and draped in sterile fashion using 1% lidocaine for local anesthesia, micropuncture kit a 6-Ecuadorean sheath was inserted into the left common femoral artery. Left common femoral artery angiography was performed to confirm position of the sheath. Then selective right and left coronary angiography was performed with a JR-4 diagnostic catheters and EBU 3.56 Ecuadorean guide. Angiography was taken in multiple views. We identified an acute stent thrombosis of the proximal LAD for which the LAD was wired with a run-through wire. This was followed by insertion of a 3-0 x 12 noncompliant balloon which was inflated 2 hemispheres and a noncompliant 3.5 12 also inflated to high pressures. The patient has successful reperfusion of the vessel with BRAD III flow. He went into reperfusion rhythm. He remained stable with a blood pressure and heart rate and improvement of symptoms. The patient tolerated the procedure well without complications. Estimated blood loss less than 30 cc. Total contrast used 70 cc. The right groin access site was closed with a Perclose device. RESULTS LEFT VENTRICLE The left ventricular pressure was 176/31 with an LVEDP of 36. The aortic pressure was 175/116 with a mean of 144. There was no gradient upon pullback from the left ventricle to aorta. ANGIOGRAPHY 1. Right coronary artery. The right coronary artery is a dominant vessel giving off the PDA. It has no significant obstructions and is unchanged from previous cath. The PDA is wide open and patent and the PLV branch has a 30% lesion proximally. 2. Left main: The left main has 40% lesion distally, unchanged from previous cath. 3. The LAD is 100% occluded right at the stent insertion. 4. The left circumflex artery is composed of two main OM vessels and an AV groove circ. These vessels are patent with BRAD III flow and none significant obstructive coronary artery disease. CONCLUSION 1. Successful POBA to proximal LAD in the setting of acute stent thrombosis due to noncompliant with DAPT. 2. Elevated LVEDP. RECOMMENDATIONS Admit to [facility] for post cath care. The patient will continue on Angiomax for the next 4 hours. He was started on an loading dose of Plavix and given aspirin and continue aggressive medical management for secondary prevention of CAD including therapeutic lifestyle changes such as smoking cessation, exercise and diet. 2Decho. Medications and IVs Current Medications Sodium Chloride 1,000 ml @ 0 mls/hr Q0M ONCE IV ; Start 07/24/17 at 15:40; Stop 07/24/17 at 15:42; Status DC Sodium Chloride (NS Flush) 2 ml UNSCH PRN IVF FLUSH AFTER USING IV ACCESS Last administered on 07/26/17 08:45; Start 07/24/17 at 15:45 Aspirin (Aspirin Chew) 324 mg NOW STAT PO Last administered on 07/24/17 16:36 ; Start 07/24/17 at 15:40; Stop 07/24/17 at 15:42; Status DC Nitroglycerin (Nitrostat Sl) 0.4 mg NOW STAT SL ; Start 07/24/17 at 15:40; Stop 07/24/17 at 15:42; Status DC Nitroglycerin/ Dextrose 250 ml @ 3 mls/hr TITRATE PRN IV for angina or ST elevation Last administered on 07/24/17 16:37; Start 07/24/17 at 15:45; Stop 07/24 at 19:24; Status DC Morphine Sulfate (Morphine Inj) 4 mg ONCE ONCE IV PUSH Last administered on 16:36; Start 07/24/17 at 16:00; Stop 07/24/17 at 16:01; Status DC Heparin Sodium (Porcine) (Heparin Inj) 6,000 units NOW STAT IV Last administered on 07/24/17 16:36; Start 07/24/17 at 15:57; Stop 07/24/17 at 15:58; Status DC Heparin Sodium/ Sodium Chloride 1,000 ml @ As Directed STK-MED ONCE .ROUTE Last administered on 07/24/17 16:08; Start 07/24/17 at 16:08; Stop 07/24/17 at 16: 09; Status DC Midazolam HCl (Versed Inj) 2 mg STK-MED ONCE .ROUTE Last administered on 16:24; Start 07/24/17 at 16:09; Stop 07/24/17 at 16:10; Status DC Fentanyl Citrate (fentaNYL INJ) 100 mcg STK-MED ONCE .ROUTE Last administered on 07/24/17 16:25; Start 07/24/17 at 16:09; Stop 07/24/17 at 16:10; Status DC Heparin Sodium (Porcine) (Heparin Inj) 10,000 units STK-MED ONCE .ROUTE ; Start 07/24/17 at 16:09; Stop 07/24/17 at 16:10; Status DC Nitroglycerin 5 ml @ As Directed STK-MED ONCE .ROUTE ; Start 07/24/17 at 16:09; Stop 07/24/17 at 16:10; Status DC Morphine Sulfate (Morphine Inj) 8 mg STK-MED ONCE .ROUTE Last administered on 16:29; Start 07/24/17 at 16:28; Stop 07/24/17 at 16:29; Status DC Midazolam HCl (Versed Inj) 5 mg STK-MED ONCE .ROUTE Last administered on 16:30; Start 07/24/17 at 16:28; Stop 07/24/17 at 16:29; Status DC Bivalirudin (Angiomax Inj) 250 mg STK-MED ONCE .ROUTE Last administered on 16:37; Start 07/24/17 at 16:35; Stop 07/24/17 at 16:36; Status DC Sterile Water (Sterile Water For Injection) 10 ml STK-MED ONCE .ROUTE Last administered on 07/24/17 16:35; Start 07/24/17 at 16:35; Stop 07/24/17 at 16:36; Status DC Hydromorphone HCl (Dilaudid Pf Inj) 2 mg STK-MED ONCE .ROUTE Last administered on 07/24/17 16:47; Start 07/24/17 at 16:46; Stop 07/24/17 at 16:47; Status DC Clopidogrel Bisulfate (Plavix) 300 mg STK-MED ONCE .ROUTE Last administered on 07/24/17 17:00; Start 07/24/17 at 16:54; Stop 07/24/17 at 16:55; Status DC Bivalirudin (Angiomax Inj) 250 mg STK-MED ONCE .ROUTE ; Start 07/24/17 at 16:54; Stop 07/24/17 at 16:55; Status DC Labetalol HCl (Trandate Inj) 100 mg STK-MED ONCE .ROUTE Last administered on 17:04; Start 07/24/17 at 17:04; Stop 07/24/17 at 17:05; Status DC Sodium Chloride 1,000 ml @ 125 mls/hr Q8H IV ; Start 07/24/17 at 17:16; Stop 07/24/17 at 21:15; Status DC Acetaminophen (Tylenol) 325 mg Q4H PRN PO PAIN SCALE 1 TO 2 Last administered on 07/24/17 23:33; Start 07/24/17 at 17:30 Morphine Sulfate (Morphine Inj) 2 mg Q30M PRN IV PUSH BREAKTHROUGH PAIN Last administered on 07/26/17 06:28; Start 07/24/17 at 17:30 Aspirin (Aspirin Chew) 81 mg DAILY PO ; Start 07/24/17 at 18:00; Stop 07/24/17 at 18:49; Status DC Clopidogrel Bisulfate (Plavix) 600 mg ONCE ONCE PO ; Start 07/24/17 at 17:30; Stop 07/24/17 at 17:34; Status DC Clopidogrel Bisulfate (Plavix) 75 mg DAILY PO Last administered on 07/26/17 08 :45; Start 07/25/17 at 09:00 Bivalirudin 250 mg/Sodium Chloride 50 ml @ 0 mls/hr Q0M IV Last administered on 07/24/17 19:50; Start 07/24/17 at 17:16; Stop 07/24/17 at 21:15; Status DC Miscellaneous Information 1 ONCE ONCE XX ; Start 07/24/17 at 17:30; Stop at 17:35; Status DC Atropine Sulfate (Atropine Inj) 0.5 mg UNSCH PRN IV PUSH VAGAL REPONSE; Start 07/24/17 at 17:30 Ondansetron HCl (Zofran Inj) 4 mg Q4H PRN IV PUSH NAUSEA; Start 07/24/17 at 17: 30 Carvedilol (Coreg) 3.125 mg BID PO Last administered on 07/25/17 20:46; Start 07/24/17 at 21:00; Stop 07/25/17 at 22:14; Status DC Atorvastatin Calcium (Lipitor) 10 mg HS PO Last administered on 07/24/17 21:17 ; Start 07/24/17 at 21:00; Stop 07/25/17 at 09:29; Status DC Aspirin (Aspirin Chew) 81 mg DAILY PO Last administered on 07/25/17 09:24; Start 07/25/17 at 09:00; Stop 07/25/17 at 22:14; Status DC Albuterol/ Ipratropium (Duoneb Neb) 1 ampule Q4HR NEB NEB Last administered on 07/26/17 07:47; Start 07/24/17 at 20:00 Furosemide (Lasix Inj) 40 mg NOW ONCE IV PUSH Last administered on 07/24/17 19 :41; Start 07/24/17 at 19:30; Stop 07/24/17 at 19:31; Status DC Nitroglycerin/ Dextrose 250 ml @ 1.5 mls/hr TITRATE PRN IV Blood Pressure Management Last administered on 07/24/17 19:57; Start 07/24/17 at 19:30; Stop 07/25/17 at 09:29; Status DC Atorvastatin Calcium (Lipitor) 80 mg HS PO Last administered on 07/25/17 20:46 ; Start 07/25/17 at 21:00 Isosorbide Mononitrate (Imdur) 30 mg DAILY@07 PO Last administered on 06:03; Start 07/26/17 at 07:00 Lisinopril (Prinivil) 20 mg DAILY PO Last administered on 07/26/17 08:46; Start 07/25/17 at 09:30 Furosemide (Lasix Inj) 40 mg BID@09,18 IV PUSH Last administered on 07/26/17 08:48; Start 07/25/17 at 18:00 Aspirin (Aspirin Chew) 162 mg DAILY PO Last administered on 07/26/17 08:45; Start 07/26/17 at 09:00 Carvedilol (Coreg) 3.125 mg BID PO Last administered on 07/26/17 08:46; Start 07/25/17 at 21:00 Pantoprazole Sodium (Protonix) 40 mg Q12HR PO Last administered on 07/26/17 08 :45; Start 07/25/17 at 21:00 Ramipril (Altace) 5 mg BID PO Last administered on 07/26/17 08:46; Start at 21:00 Famotidine (Pepcid) 40 mg BID PO Last administered on 07/26/17 08:46; Start at 21:00 Nicotine (Habitrol 14 Mg Patch.24 Hr) 1 patch ONCE ONCE T-DERMAL Last administered on 07/25/17 10:47; Start 07/25/17 at 09:45; Stop 07/25/17 at 10:24; Status DC Nicotine (Habitrol 14 Mg Patch.24 Hr) 1 patch DAILY T-DERMAL Last administered on 07/26/17 08:48; Start 07/26/17 at 09:00 Miscellaneous Information 1 DAILY T-DERMAL Last administered on 07/26/17 08:50 ; Start 07/26/17 at 09:00 Guaifenesin (Mucinex Er) 600 mg BID PO Last administered on 07/26/17 08:45; Start 07/25/17 at 09:45 Albuterol/ Ipratropium (Duoneb Neb) 1 ampule Q4HR NEB PRN NEB SHORTNESS OF BREATH; Start 07/25/17 at 09:45 Potassium Chloride (KCl) 40 meq ONCE ONCE PO Last administered on 07/25/17 10: 47; Start 07/25/17 at 09:45; Stop 07/25/17 at 10:29; Status DC Pneumococcal Polyvalent Vaccine (Pneumovax-23 Inj) 25 mcg ONCE ONCE IM ; Start 07/26/17 at 09:00; Stop 07/26/17 at 09:01; Status DC Urinary Catheter: No Vascular Central Line Catheter: No A/P Problem List: (1) Hypertension ICD Code: I10 - Essential (primary) hypertension (2) Hyperlipidemia ICD Code: E78.5 - Hyperlipidemia, unspecified (3) COPD (chronic obstructive pulmonary disease) ICD Code: J44.9 - Chronic obstructive pulmonary disease, unspecified (4) GI bleed due to NSAIDs ICD Code: K92.2 - Gastrointestinal hemorrhage, unspecified; T39.395A - Adverse effect of other nonsteroidal anti-inflammatory drugs [NSAID], initial encounter (5) Noncompliance ICD Code: Z91.19 - Patient's noncompliance with other medical treatment and regimen (6) Pain, chronic ICD Code: G89.29 - Other chronic pain (7) Tobacco abuse ICD Code: Z72.0 - Tobacco use (8) CAD (coronary artery disease) ICD Code: I25.10 - Atherosclerotic heart disease of [place] coronary artery without angina pectoris (9) STEMI (ST elevation myocardial infarction) ICD Code: I21.3 - ST elevation (STEMI) myocardial infarction of unspecified site Status: Acute (10) Hypokalemia ICD Code: E87.6 - Hypokalemia Assessment and Plan Known coronary artery disease with in-stent rethrombosis status post balloon angioplasty of the stents Tobacco abuse recommend smoking cessation Chronic back pain chronic pain continue pain medications Hypertension home medications hyperlipidemia home medications GERD- PPI H2 MICA HYPOKALEMIA REPLACE AM LABS NONCOMPLIANCE Cardiac diet and activity as tolerated Physical therapy and occupational therapy to eval and treat A.m. labs case management regarding discharge planning LEFT AMA LAST TIME MAY LEAVE AMA AGAIN HAS NOT BEEN CLEARED BY CARDIOLOGY YET RENAL FUNCTIONS WORSE AM LABS Problem Qualifiers (1) STEMI (ST elevation myocardial infarction): Qualified Codes: I21.3 - ST elevation (STEMI) myocardial infarction of unspecified site Greg Berrios DO Jul 26, 2017 09:46
--- NOTE | 2017-07-26 10:47 | PD.AMA ---
Against Medical Advice Note Diagnosis: (1) Noncompliance (2) Pain, chronic (3) Hypertension (4) Hypokalemia (5) Hyperlipidemia (6) COPD (chronic obstructive pulmonary disease) (7) Tobacco abuse (8) CAD (coronary artery disease) Discharge Disposition: Against Medical Advice Pt Condition on Discharge: Fair Recommended Treatment Course Follow-up with her primary care physician. Follow-up with cardiology. Take the prescriptions that were prescribed previously needs to be on blood thinners chronically for his stent and an aspirin AMA Statement Patient Fei Villasenor has decided to leave the hospital against medical advice. This patient has the capacity to refuse care and understands the risks of leaving, including permanent disability and/or , and has had an opportunity to ask questions about his condition. The patient has been informed that he may return for care at any time, and follow up has been arranged/ advised. Greg Berrios DO Jul 26, 2017 10:47
[2017-07-26 12:51] LABS: HEMOGLOBIN A1b 0.8 %; HEMOGLOBIN Ao 85.3 %; HEMOGLOBIN F 0.8 %; HEMOGLOBIN LA1C 2.2 %; HEMOGLOBIN P3 3.9 %
== END 2017-07-26 10:20 | disposition left against medical advice (07) | DRG 251 ==
LOC: NEPE 15:29 → NEDA 16:08 → HCIS 17:14
PROVIDERS: ADMIT Hospitalist; ATTEND Hospitalist
PROC: 02703ZZ Dilation of Coronary Artery, One Artery, Percutaneous Approach (ICD-10-PCS; principal; 2017-07-24)
PROC: 4A023N7 Measurement of Cardiac Sampling and Pressure, Left Heart, Percutaneous Approach (ICD-10-PCS; 2017-07-24)
PROC: B2111ZZ Fluoroscopy of Multiple Coronary Arteries using Low Osmolar Contrast (ICD-10-PCS; 2017-07-24)
PROC: B2151ZZ Fluoroscopy of Left Heart using Low Osmolar Contrast (ICD-10-PCS; 2017-07-24)
DX: I21.29 ST elevation (STEMI) myocardial infarction involving other sites (principal); T82.867A Thrombosis due to cardiac prosthetic devices, implants and grafts, initial encounter; I25.82 Chronic total occlusion of coronary artery; J44.9 Chronic obstructive pulmonary disease, unspecified; I10 Essential (primary) hypertension; Y84.8 Other medical procedures as the cause of abnormal reaction of the patient, or of later complication, without mention of misadventure at the time of the procedure; F17.210 Nicotine dependence, cigarettes, uncomplicated; E78.5 Hyperlipidemia, unspecified; I25.10 Atherosclerotic heart disease of native coronary artery without angina pectoris; G89.29 Other chronic pain; E87.6 Hypokalemia; E66.9 Obesity, unspecified; Z89.512 Acquired absence of left leg below knee; Z79.82 Long term (current) use of aspirin; Z79.02 Long term (current) use of antithrombotics/antiplatelets; Z91.19 Patient's noncompliance with other medical treatment and regimen; Z68.31 Body mass index [BMI] 31.0-31.9, adult
CPT/HCPCS: 71010; 80048; 80053; 80061; 82310; 82435; 82550; 82552; 82565; 82947; 83036; 83735; 83880; 84100; 84132; 84295; 84439; 84443; 84484; 84520; 85025; 85610; 85730; 92941; 93005; 93306; 93458; 94640; 94664; 99291; C1725; C1760; C1769; C1887; C1893; G0269; J0583; J1170; J1644; J1940; J2250; J2270; J3010; Q9967